=== PATIENT | female | born 1955 | race Hispanic/Latino ===

== ENCOUNTER 2017-03-05 09:35 | Day surgery (SDC) | payer BC ==
[2016-07-16 12:47] VITALS: BMI 30.2
[2017-03-05 10:15] VITALS: TEMP 98.7
[2017-03-05] MEDS ORDERED: cefTRIAXone (Rocephin) 1 gm Inj ONE (10:50)
[2017-03-05] MEDS ORDERED: Propofol 10 mg/ml Inj (20 ML) ONE ×2 (10:52→11:10)
[2017-03-05] MEDS ORDERED: cefTRIAXone 1 GM in NS 100 ML BAG IVPB ONE (10:55)
[2017-03-05] MEDS ORDERED: Sodium Chloride 0.9% 1,000 ML IV SCH (11:30)
[2017-03-05 13:56] VITALS: BP 143/79; PULSE 63; RESP 16; O2SAT 98
== END 2017-03-05 13:04 | disposition home or self-care (01) ==
LOC: ENDO 09:35
PROVIDERS: ATTEND Internal Medicine Gastroenterology
DX: K25.9 Gastric ulcer, unspecified as acute or chronic, without hemorrhage or perforation (principal); K29.50 Unspecified chronic gastritis without bleeding; K74.60 Unspecified cirrhosis of liver; I85.10 Secondary esophageal varices without bleeding; Z85.51 Personal history of malignant neoplasm of bladder
CPT/HCPCS: 43239; 88305; 88342; J0696; J2405; J2704; J2765; J7040 ×2

== ENCOUNTER 2018-10-12 12:49 | Inpatient (IN) | payer BC ==
[2018-10-12] MEDS ORDERED: Iohexol 240 (50 ml) ONE (13:42)
[2018-10-12 14:28] LABS: VENOUS BLOOD GAS BASE EXCESS 2.7 mmol/L (0.0-2.0); VENOUS BLOOD GAS PO2 57 mm/Hg (30-55); VENOUS BLOOD PH 7.59 (7.32-7.43)
[2018-10-12 14:33] LABS: HEMOGLOBIN 10.2 g/dL (12.0-16.0); LYMPH # 0.5 (1.2-3.4); LYMPH % 5.9 % (22.0-35.0); MEAN CELL VOLUME 79.2 fl (80.0-105.0); MEAN CORPUSCULAR HEMOGLOBIN 26.2 pg (25.0-35.0); MEAN CORPUSCULAR HGB CONC 33.1 g/dl (31.0-37.0); MONO # 0.6 (0.1-0.6); MONO % 6.7 % (1.0-6.0); PLATELET COUNT 144 10^3/uL (120.0-450.0); RBC 3.89 10^6/uL (3.5-6.1); RED CELL DISTRIBUTION WIDTH 15.7 % (11.5-14.5); WHITE BLOOD COUNT 8.9 10^3/uL (4.5-11.0)
[2018-10-12 14:39] LABS: INR 1.77; PARTIAL THROMBOPLASTIN TIME 32.4 Seconds (26.9-38.3); PROTHROMBIN TIME 19.7 SECONDS (9.4-12.5)
[2018-10-12 14:43] LABS: ALB/GLOB RATIO 0.8 (1.1-1.8); ALBUMIN 3.3 g/dL (3.0-4.8); ALT/SGPT 66 U/L (7-56); AMYLASE 77 U/L (35-125); AST/SGOT 61 U/L (14-36); BLOOD UREA NITROGEN 15 mg/dL (7-21); CALCIUM 8.5 mg/dL (8.4-10.5); GFR NON-AFRICAN AMERICAN 50; LIPASE 106 U/L (23-300)
[2018-10-12 14:54] LABS: TROPONIN I < 0.01 ng/mL
[2018-10-12] MEDS ORDERED: Iohexol 350 MG/100 ML VIAL ONE (15:12)
--- NOTE | 2018-10-12 15:46 | US ---
Date of service: 10/12/2018 HISTORY: abdominal pain COMPARISON: None. TECHNIQUE: Sonographic evaluation of the abdomen. FINDINGS: LIVER: Measures 12.6 cm. Heterogeneous with diffusely increased echogenicity of the liver parenchyma. Normal directional blood flow seen in the main portal vein. No mass. No intrahepatic bile duct dilatation. GALLBLADDER: Sludge is identified within a distended gallbladder limited cholelithiasis however there is no sonographic Lofton sign present. Normal mural thickness is evident. There is no pericholecystic fluid collection identified. COMMON BILE DUCT: Measures 6.7 mm. No stones. No dilatation. PANCREAS: Unremarkable as visualized. No mass. No ductal dilatation. RIGHT KIDNEY: Measures 11.9cm. Normal echogenicity. Mild hydronephrosis identified. No definitive mass or urolithiasis associated No perinephric fluid collection appreciated. LEFT KIDNEY: Measures 11.8cm. Mild hydronephrosis appreciated. No definite mass or urolithiasis. No perinephric fluid collection. SPLEEN: The spleen is enlarged to 15.6 cm without focal mass appreciable. AORTA: No aneurysmal dilatation. IVC: Unremarkable. OTHER FINDINGS: None. IMPRESSION: 1. Hepatic steatosis or other infiltrative liver process evident. No intrahepatic biliary dilatation or discrete hepatic mass evident. 2. Sludge and cholelithiasis identified in the gallbladder lumen without definite acute findings appreciable. Clinically correlate nevertheless. 3. Splenomegaly to 15.6 cm without focal mass. 4. Bilateral mild hydronephrosis with bilateral kidneys otherwise unremarkable.
--- NOTE | 2018-10-12 16:13 | CT ---
Date of service: 10/12/2018 PROCEDURE: CT Abdomen and Pelvis with contrast HISTORY: abdominal pain. History of ileal conduit, cystectomy and appendectomy COMPARISON: None. TECHNIQUE: Contrast dose: 100 cc of Omni 350 Radiation dose: Total exam DLP = 552.38 mGy-cm. This CT exam was performed using one or more of the following dose reduction techniques: Automated exposure control, adjustment of the mA and/or kV according to patient size, and/or use of iterative reconstruction technique. FINDINGS: LOWER THORAX: Minimal linear scarring or atelectasis at both lung bases LIVER: The liver has an irregular contour. The right lobe is small relative to the left. Findings may represent cirrhosis. Clinical correlation is suggested. There is also splenomegaly GALLBLADDER AND BILE DUCTS: Unremarkable. PANCREAS: Unremarkable. No gross lesion or ductal dilatation. SPLEEN: There is splenomegaly. The spleen measures 15 cm in length by 16 cm AP and 4.8 cm wide ADRENALS: Unremarkable. No mass. KIDNEYS AND URETERS: 6 mm nonobstructing stone in the lower pole of the left kidney. Both renal collecting systems are moderately dilated. The ureters are moderately dilated leading to the ileostomy in the right lower quadrant. VASCULATURE: Unremarkable. No aortic aneurysm. No aortic atherosclerotic calcification or mural plaque present. BOWEL: Unremarkable. No obstruction. No gross mural thickening. APPENDIX: Normal appendix. PERITONEUM: Unremarkable. No free fluid. No free air. LYMPH NODES: Unremarkable. No enlarged lymph nodes. BLADDER: Unremarkable. REPRODUCTIVE: Unremarkable. BONES: No acute fracture. OTHER FINDINGS: None. IMPRESSION: The liver has an irregular contour. The right lobe is small relative to the left. Findings may represent cirrhosis. Clinical correlation is suggested. There is also splenomegaly 6 mm nonobstructing stone in the lower pole of the left kidney. Both renal collecting systems are moderately dilated. The ureters are moderately dilated leading to the ileostomy in the right lower quadrant.
[2018-10-12] MEDS ORDERED: Cefepime IV 2 gm in NS 2 GM/100 ML BAG IVPB STA (16:23)
[2018-10-12] MEDS ORDERED: Sodium Chloride 0.9% 1,000 ML IV STA (16:27)
--- NOTE | 2018-10-12 16:35 | ED PDOC ---
Arrival/HPI - General Chief Complaint: Abdominal Pain Historian: Patient - History of Present Illness Narrative History of Present Illness (Text): 10/12/18 16:32 63yo female with pmhx of bladder CA, 2 hernia repair who present with complaint of constant sharp epigastric pain x 3days with associated nausea. Notes that pain became worse the past two days. Saw her Oncologist today and was referred to ED. Denies vomiting, diarrhea, constipation, chest pain, ripping/tearing upper back pain, melena, hematemesis, sick contact, travel, any other complaint. 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) - Hematological/Oncological Hx Blood Disorders: Yes (autoimmune Hepatitis) Hx Blood Transfusions: No Hx Blood Transfusion Reaction: No - Musculoskeletal/Rheumatological Hx Musculoskeletal Disorders: Yes - Gastrointestinal Hx Gastrointestinal Disorders: Yes (LOAP INCISIONAL HERNIA WITH BX OF OVER 03-11-15,LIVER CIRHOSIS) - Genitourinary/Gynecological Hx Genitourinary Disorders: Yes (ILEAL CONDUIT,HYSTERECTOMY 1998) Hx Bladder Cancer: Yes - Psychiatric Hx Substance Use: No - Surgical History Other/Comment: ILEAL CONDUIT 2013 - Anesthesia Hx Anesthesia Reactions: No Hx Malignant Hyperthermia: No - Suicidal Assessment Feels Threatened In Home Enviroment: No Family/Social History - Physician Review Nursing Documentation Reviewed: Yes Family/Social History: Unknown Family HX Smoking Status: Never Smoked Hx Alcohol Use: No Hx Substance Use: No Allergies/Home Meds Allergies/Adverse Reactions: Allergies levofloxacin [From Levaquin] Allergy (Severe, Verified 03/01/17 10:59) LOW WBC COUNT morphine Allergy (Severe, Verified 03/01/17 10:59) RESTLESSNESS,PALPITATIONS Sulfa (Sulfonamide Antibiotics) Allergy (Severe, Verified 03/01/17 10:59) RASH Home Medications: Home Meds Medication Instructions Recorded Confirmed Cholecalciferol (Vitamin D3) 1,000 iu PO DAILY 02/28/15 10/12/18 [Vitamin D] Cyanocobalamin [Vitamin B12 100 100 mcg PO DAILY 07/16/16 10/12/18 mcg Tab] Review of Systems - Physician Review All systems were reviewed & negative as marked: Yes - Review of Systems Constitutional: Normal Eyes: Normal ENT: Normal Respiratory: Normal Cardiovascular: Normal Gastrointestinal: Abdominal Pain, Nausea. absent: Constipation, Diarrhea, Vomiting, Hematochezia, Hematemesis Genitourinary Female: Normal Musculoskeletal: Normal Skin: Normal Neurological: Normal Endocrine: Normal Hemo/Lymphatic: Normal Psychiatric: Normal Physical Exam Vital Signs Reviewed: Yes Vital Signs Temp Pulse Resp BP Pulse Ox 10/12/18 16:15 98.1 F 87 18 123/76 97 10/12/18 13:04 101.0 F H 101 H 18 130/84 94 L Temperature: Febrile Blood Pressure: Normal Pulse: Tachycardic Respiratory Rate: Normal Appearance: Positive for: Well-Appearing, Non-Toxic, Comfortable Pain Distress: None Mental Status: Positive for: Alert and Oriented X 3 - Systems Exam Head: Present: Atraumatic, Normocephalic Pupils: Present: PERRL Extroacular Muscles: Present: EOMI Conjunctiva: Present: Normal Mouth: Present: Moist Mucous Membranes Neck: Present: Normal Range of Motion Respiratory/Chest: Present: Clear to Auscultation, Good Air Exchange. No: Respiratory Distress, Accessory Muscle Use Cardiovascular: Present: Regular Rate and Rhythm, Normal S1, S2. No: Murmurs Abdomen: Present: Tenderness (Epigastric ), Normal Bowel Sounds, Guarding (Voluntary), Other (Soft). No: Distention, Peritoneal Signs, Rebound, McBurney's Point Tender, Rovsing's Sign Present Back: Present: Normal Inspection Upper Extremity: Present: Normal Inspection. No: Cyanosis, Edema Lower Extremity: Present: Normal Inspection. No: Edema Neurological: Present: GCS=15, CN II-XII Intact, Speech Normal Skin: Present: Warm, Dry, Normal Color. No: Rashes Psychiatric: Present: Alert, Oriented x 3, Normal Insight, Normal Concentration Medical Decision Making ED Course and Treatment: 10/12/18 19:03 63yo female who was referred to ED by Dr. De La Cruz for epigastric pain x 3weeks. Labs EKG Abdominal US Abdominal/Pelvic CT Labs was reviewed with no leukocytosis and non specific findings EKG Sinus tachy @ 105 N-stemi Chest xray NAD Case was CHAPARRITA Johnson, who also saw pt in ED by the bedside. Abdominal/Pelvic CT Abdominal US CAse and resutl was CHAPARRITA Randolph. PT was admitted to they service. He requested Sugery consult and residential living assistant was paged twice wihout response. Imaging result was also result was Elizabeth and he was aware. Pt was started on Cefepime empirically secondary to the fever, abdominal pain and tachycardia. Lactate was wnl. - Lab Interpretations Lab Results: pO2 57 mm/Hg (30-55) H 10/12/18 14:15 VBG pH 7.59 (7.32-7.43) H 10/12/18 14:15 VBG pCO2 24.0 (40-60) L 10/12/18 14:15 VBG HCO3 23.0 mmol/l (21-28) 10/12/18 14:15 VBG Total CO2 23.7 mmol.L (22-28) 10/12/18 14:15 VBG O2 Sat (Calc) 95.7 % (40-65) H 10/12/18 14:15 VBG Base Excess 2.7 mmol/L (0.0-2.0) H 10/12/18 14:15 VBG Potassium 3.5 mmol/L (3.6-5.2) L 10/12/18 14:15 Sodium 131.0 mmol/L (132-148) L 10/12/18 14:15 Chloride 101.0 mmol/L (98-107) 10/12/18 14:15 Glucose 115 mg/dl (65-105) H 10/12/18 14:15 Lactate 1.0 mmol/L (0.7-2.1) 10/12/18 14:15 FiO2 21.0 % 10/12/18 14:15 Crit Value Called To Addis capellan 10/12/18 14:15 Crit Value Called By Ursula goodwin 10/12/18 14:15 Blood Gas Notified Time 1428 10/12/18 14:15 PT 19.7 SECONDS (9.4-12.5) H 10/12/18 14:15 INR 1.77 10/12/18 14:15 APTT 32.4 Seconds (26.9-38.3) 10/12/18 14:15 Troponin I < 0.01 ng/mL 10/12/18 14:15 Total Bilirubin 1.6 mg/dL (0.2-1.3) H 10/12/18 14:15 AST 61 U/L (14-36) H 10/12/18 14:15 ALT 66 U/L (7-56) H 10/12/18 14:15 Alkaline Phosphatase 180 U/L (38-126) H 10/12/18 14:15 Total Protein 7.3 g/dL (5.8-8.3) 10/12/18 14:15 Albumin 3.3 g/dL (3.0-4.8) 10/12/18 14:15 Globulin 4.0 gm/dL 10/12/18 14:15 Albumin/Globulin Ratio 0.8 (1.1-1.8) L 10/12/18 14:15 Amylase 77 U/L (35-125) 10/12/18 14:15 Lipase 106 U/L (23-300) 10/12/18 14:15 - RAD Interpretation Radiology Orders: 10/12/18 13:36 ABD PELVIS PO & IV CONTRAST [CT] Stat ABDOMEN COMPLETE [US] Stat 10/12/18 16:28 CHEST PORTABLE [RAD] Stat - Medication Orders Current Medication Orders: Cefepime HCl (Maxipime 2gm) 2 gm in 100 mls @ 100 mls/hr IVPB STAT STA; Protocol Stop: 10/12/18 17:22 Sodium Chloride (Sodium Chloride 0.9%) 1,000 mls @ 999 mls/hr IV .Q1H1M STA Stop: 10/12/18 17:27 Discontinued Medications Ketorolac Tromethamine (Toradol) 30 mg IVP STAT STA Stop: 10/12/18 15:00 Last Admin: 10/12/18 15:11 Dose: 30 mg MAR Pain Assessment Document 10/12/18 15:11 [facility] (Rec: 10/12/18 15:11 [id number] Pain Reassessment Is this a pain reassessment? Yes IVP Administration Document 10/12/18 15:11 [facility] (Rec: 10/12/18 15:11 [id number] Charges for Administration # of IVP Administrations 1 Disposition/Present on Arrival - Present on Arrival Any Indicators Present on Arrival: No History of DVT/PE: No History of Uncontrolled Diabetes: No Urinary Catheter: Yes (ILEAL CONDUIT) History of Decub. Ulcer: No History Surgical Site Infection Following: None - Disposition Have Diagnosis and Disposition been Completed?: Yes Diagnosis: Cholelithiasis, Intractable abdominal pain Disposition: HOSPITALIZED Disposition Time: 16:10 Patient Plan: Admission Patient Problems: Current Active Problems Problem Status Onset Cholelithiasis Acute Intractable abdominal pain Acute Condition: FAIR
--- NOTE | 2018-10-12 16:51 | RAD ---
Date of service: 10/12/2018 HISTORY: admission COMPARISON: 02/28/2015 FINDINGS: LUNGS: No active pulmonary disease. PLEURA: No significant pleural effusion identified, no pneumothorax apparent. CARDIOVASCULAR: No aortic atherosclerotic calcification present. Normal cardiac size. No pulmonary vascular congestion. OSSEOUS STRUCTURES: No significant abnormalities. VISUALIZED UPPER ABDOMEN: Normal. OTHER FINDINGS: None. IMPRESSION: No active disease.
[2018-10-12 19:33] VITALS: BMI 28.5
[2018-10-12] MEDS ORDERED: Pneumococcal 23-Valent Vaccine IM ONE (19:33)
[2018-10-12] MEDS ORDERED: Influenza Vaccine 60 mcg/0.5 mL SYR (4YR UP) IM ONE (19:33)
--- NOTE | 2018-10-12 19:43 | CP.PCM.CON ---
History of Present Illness - History of Present Illness History of Present Illness: Surgery: Dr. Cornelius CC: Abd pain HPI: 63F w. pmh of autoimmune hepatitis, bladder CA, and stomach ulcer presents to ED for evaluation of abdominal pain x 3 weeks. Pain is epigastric, non- radiating. Pain was initially intermittent but became constant over the past few days. There are no alleviating or aggravating symptoms. She reports decreased appetite and unintentional 15lb weight loss over this period. She denies N/V. She has normal BM. No Diarrhea. She did have fever of 101 today. Pt had U/S done in ED which showed sludge and +Lofton sign for which surgery was consulted. PMH: See above PSH: appendectomy, radical cystectomy w. ileal conduit, parastomal hernia repair, ventral hernia repair Meds: MAR reviewed ALL: levaquin, toradol, morphine, sulfa Social: No ETOH/tobacco/drugs Fhx: Non-contributory Review of Systems - Review of Systems All systems: reviewed and no additional remarkable complaints except (HPI) Past Patient History - Past Social History Smoking Status: Never Smoked - CARDIAC Hx Pacemaker: No - PULMONARY Hx Respiratory Disorders: No - NEUROLOGICAL Hx Paralysis: No - HEENT Hx HEENT Problems: No - RENAL Hx Chronic Kidney Disease: Yes (ADENOCARCINOMA OF THE BLADDER) - ENDOCRINE/METABOLIC Hx Endocrine Disorders: No - HEMATOLOGICAL/ONCOLOGICAL Hx Blood Disorders: Yes (autoimmune Hepatitis) Hx Blood Transfusions: No Hx Blood Transfusion Reaction: No - INTEGUMENTARY Hx Dermatological Problems: No - MUSCULOSKELETAL/RHEUMATOLOGICAL Hx Falls: No - GASTROINTESTINAL Hx Gastrointestinal Disorders: Yes (LOAP INCISIONAL HERNIA WITH BX OF OVER 7-27-15,LIVER CIRHOSIS) - GENITOURINARY/GYNECOLOGICAL Hx Genitourinary Disorders: Yes (ILEAL CONDUIT,HYSTERECTOMY 1998) Hx Bladder Cancer: Yes - PSYCHIATRIC Hx Substance Use: No - SURGICAL HISTORY Other/Comment: ILEAL CONDUIT 2013 - ANESTHESIA Hx Anesthesia Reactions: No Hx Malignant Hyperthermia: No Meds Allergies/Adverse Reactions: Allergies Allergy/AdvReac Type Severity Reaction Status Date / Time levofloxacin [From Levaquin] Allergy Severe LOW WBC Verified 03/01/17 10:59 COUNT morphine Allergy Severe RESTLESSNES Verified 03/01/17 10:59 S,PALPITATI ONS Sulfa (Sulfonamide Allergy Severe RASH Verified 07/17/17 10:59 Antibiotics) ketorolac [From Toradol] AdvReac Intermediate feels Verified 10/12/18 19:21 jittery - Medications Medications: Current Medications Hydromorphone HCl (Dilaudid) 1 mg IVP Q4H PRN PRN Reason: Pain, severe (8-10) Sodium Chloride (Sodium Chloride 0.9%) 1,000 mls @ 100 mls/hr IV .Q10H AKSHAT Cefepime HCl (Maxipime 1gm) 1 gm in 100 mls @ 100 mls/hr IVPB Q8 AKSHAT; Protocol Influenza Virus Vaccine (Flucelvax Quad 5535-6412 Syr) 60 mcg IM .ONCE ONE Stop: 10/12/18 19:34 Ondansetron HCl (Zofran Inj) 4 mg IVP Q4H PRN PRN Reason: Nausea/Vomiting Pantoprazole Sodium (Protonix Inj) 40 mg IVP DAILY AKSHAT Pneumococcal Polyvalent Vaccine (Pneumovax 23 Vaccine) 0.5 ml IM .ONCE ONE Stop: 10/12/18 19:34 Physical Exam - Constitutional Appears: Non-toxic, No Acute Distress - Head Exam Head Exam: ATRAUMATIC, NORMOCEPHALIC - Eye Exam Eye Exam: EOMI - ENT Exam ENT Exam: Mucous Membranes Moist - Respiratory Exam Respiratory Exam: NORMAL BREATHING PATTERN. absent: Accessory Muscle Use, Respiratory Distress - GI/Abdominal Exam GI & Abdominal Exam: Soft, Tenderness (epigastric). absent: Distended, Firm, Guarding, Rebound, Rigid Additional comments: ileal conduit, pink and patent - Extremities Exam Extremities exam: Negative for: calf tenderness, pedal edema - Neurological Exam Neurological exam: Alert, Oriented x3 - Psychiatric Exam Psychiatric exam: Normal Affect, Normal Mood - Skin Skin Exam: Dry, Normal Color, Warm Results - Vital Signs Recent Vital Signs: Last Vital Signs Temp 97.9 F 10/12/18 17:56 Pulse 87 10/12/18 19:13 Resp 18 10/12/18 19:13 BP 133/81 10/12/18 17:56 Pulse Ox 97 10/12/18 17:56 - Labs Result Diagrams: 10/12/18 14:15 10/12/18 14:15 Labs: Laboratory Results - last 24 hr 10/12/18 10/12/18 10/12/18 14:15 14:15 14:15 WBC 8.9 RBC 3.89 Hgb 10.2 L Hct 30.8 L MCV 79.2 L MCH 26.2 MCHC 33.1 RDW 15.7 H Plt Count 144 Neut % (Auto) 87.4 H Lymph % (Auto) 5.9 L Ralls % (Auto) 6.7 H Eos % (Auto) 0.0 L Baso % (Auto) 0.0 Lymph # (Auto) 0.5 L Ralls # (Auto) 0.6 Eos # (Auto) 0.0 Baso # (Auto) 0.00 Absolute Neuts (auto) 7.80 H PT 19.7 H INR 1.77 APTT 32.4 pO2 VBG pH VBG pCO2 VBG HCO3 VBG Total CO2 VBG O2 Sat (Calc) VBG Base Excess VBG Potassium Sodium 131 L Chloride 100 Glucose Lactate FiO2 Crit Value Called To Crit Value Called By Blood Gas Notified Time Potassium 3.7 Carbon Dioxide 23 Anion Gap 12 BUN 15 Creatinine 1.1 Est GFR ( Amer) > 60 Est GFR (Non-Af Amer) 50 Random Glucose 114 H Calcium 8.5 Total Bilirubin 1.6 H AST 61 H ALT 66 H Alkaline Phosphatase 180 H Lactate Dehydrogenase 451 Total Creatine Kinase 38 Troponin I < 0.01 Total Protein 7.3 Albumin 3.3 Globulin 4.0 Albumin/Globulin Ratio 0.8 L Amylase 77 Lipase 106 Venous Blood Potassium Urine Color Urine Appearance Urine pH Ur Specific [place] Urine Protein Urine Glucose (UA) Urine Ketones Urine Blood Urine Nitrate Urine Bilirubin Urine Urobilinogen Ur Leukocyte Esterase 10/12/18 10/12/18 14:15 17:10 WBC RBC Hgb Hct MCV MCH MCHC RDW Plt Count Neut % (Auto) Lymph % (Auto) Ralls % (Auto) Eos % (Auto) Baso % (Auto) Lymph # (Auto) Ralls # (Auto) Eos # (Auto) Baso # (Auto) Absolute Neuts (auto) PT INR APTT pO2 57 H VBG pH 7.59 H VBG pCO2 24.0 L VBG HCO3 23.0 VBG Total CO2 23.7 VBG O2 Sat (Calc) 95.7 H VBG Base Excess 2.7 H VBG Potassium 3.5 L Sodium 131.0 L Chloride 101.0 Glucose 115 H Lactate 1.0 FiO2 21.0 Crit Value Called To Diru happiness Crit Value Called By Ursula goodwin Blood Gas Notified Time 1428 Potassium Carbon Dioxide Anion Gap BUN Creatinine Est GFR ( Amer) Est GFR (Non-Af Amer) Random Glucose Calcium Total Bilirubin AST ALT Alkaline Phosphatase Lactate Dehydrogenase Total Creatine Kinase Troponin I Total Protein Albumin Globulin Albumin/Globulin Ratio Amylase Lipase Venous Blood Potassium 3.5 L Urine Color Cancelled Urine Appearance Cancelled Urine pH Cancelled Ur Specific [place] Cancelled Urine Protein Cancelled Urine Glucose (UA) Cancelled Urine Ketones Cancelled Urine Blood Cancelled Urine Nitrate Cancelled Urine Bilirubin Cancelled Urine Urobilinogen Cancelled Ur Leukocyte Esterase Cancelled - Imaging and Cardiology CT scan - abdomen Status: Image reviewed by me, Report reviewed by me US - abdomen Status: Image reviewed by me, Report reviewed by me Assessment & Plan - Assessment and Plan (Free Text) Assessment: 63F w. abdominal pain, likely gastritis, r/o cholecystitis -pt states that she is scheduled for EGD this Wednesday with Dr. Mancini -will f/u w. GI -c/w protonix, IVF -diet as tolerated -serial abdominal exams -d/w attending [facility] PGY4
[2018-10-12] MEDS: HYDROmorphone 1 mg/ml ISec IVP PRN (20:21)
[2018-10-12] MEDS: Cefepime 1gm in NS 100ml 1 GM/100 ML BAG IVPB SCH (21:41)
--- NOTE | 2018-10-13 04:37 | HP ---
DATE: LOCATION: The patient is in room 373, bed 3. The patient was admitted to the emergency room today. 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 The patient notes the pain became worse in the past three days or so and she has been unable to be productive, despite her working. She just comes home and lies down because of this constant pain. The patient was seen in our office today as she called me last night. The patient had been to the emergency room x3 locally where she lives at [facility] and she has an outpatient CAT scan of the abdomen and pelvis done with oral and IV contrast on 09/16/2018, which showed some cholelithiasis, ureteral stone, stone in the lower pole of the left kidney, but no other major stigmata were seen on the CAT scan. Her chemistries also from two weeks ago were relatively unrevealing. The patient denies any vomiting, diarrhea, constipation, chest pain, upper back pain, melena, hematemesis, sick contact, travel, or any other complaints. 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 PAST MEDICAL HISTORY: Significant for the fact that the patient has history of autoimmune hepatitis, about 17 to 18 years ago, treated with immunosuppressive therapy, had been on CellCept for many years, which was tapered and just stopped about a year and a half ago. The patient has evidence of cryptogenic cirrhosis and splenomegaly along with borderline thrombocytopenia, which has gradually improved. The patient also had grade I esophageal varices, which have also improved over the past several years. She no longer on any treatment for her autoimmune hepatitis. The patient also has a diagnosis of questionable urinary bladder that was picked up on routine examination and the patient was having symptoms of abdominal complaint. The patient underwent surgery for carcinoma of the urinary bladder, which was on pathology determined to be adenocarcinoma, probably arising from the urachus rather than a papillary carcinoma of the bladder. Based on the findings, the patient was recommended radical surgery, which she had done at the [facility] more than four and a half years ago. The patient has been doing well since that time and she has an ileal conduit. Since the surgery, the patient has had two hernia repairs related to ventral hernias, one was low in the abdomen around the periumbilical area and the other one was higher up, more close towards the epigastrium and both those hernias have been repaired. The patient did have a followup endoscopy about a year ago, which did not reveal anything of significance. There was evidence of grade I esophageal varices. The patient has otherwise been doing well until the recent complaint that the patient has had over the last several weeks. She has a sick at home who is on dialysis and she thought initially the pressure of taking care of a sick person was the cause of all the problems. The patient decided to come over to see us, as she was not getting better over the last several weeks. The patient has never had blood transfusion. REVIEW OF SYSTEMS: Twelve-system review of systems was done, all of which were negative except what is mentioned in the HPI. FAMILY HISTORY: Noncontributory, except for the fact that her mother and one of her brothers had significant rheumatoid arthritis. SOCIAL HISTORY: No history of alcohol use. No history of tobacco use. No history of any exposure to drugs. PHYSICAL EXAMINATION: VITAL SIGNS: Stable. T-max is 98.4, initially was 101, pulse 87, respirations 18, blood pressure 123/76, and pulse ox is 97%. The patient was febrile, temperature has come down. Blood pressure is normal. Respirations are normal. GENERAL: The patient is awake, alert, and oriented. Feels jittery after she received Toradol in the emergency room. There has been no significant pain, but feels restless. HEENT: Head is normocephalic and atraumatic. Conjunctivae pale. Sclerae anicteric. Pupils are equally reactive to light and accommodation. Examination of the oropharynx reveals no oropharyngeal lesions. Tongue is coated and dry. NECK: Supple. There is no adenopathy. No jugular venous distention noted. LUNGS: Clear to percussion and auscultation. CARDIOVASCULAR SYSTEM: Reveals PMI at the fifth intercostal space inside the midclavicular line. S1 and S2 are normal. No gallop or murmur is heard. ABDOMEN: Reveals exquisite tenderness in the epigastrium. No rebound, rigidity, or guarding is noted. Normal bowel sounds are heard. There is no evidence of distention or any peritoneal signs. No evidence of rebound. McBurney's point is negative. Rovsing sign is present. BACK: Reveals it to be normal. There is no evidence of any issues with back pain at this time. No issues with pain in the kidney region. EXTREMITIES: Upper and lower extremities are unremarkable without any cyanosis, clubbing or edema. NEUROLOGIC: Reveals higher functions to be normal. No focal deficits are noted. GENITOURINARY AND RECTAL: Deferred. PSYCHIATRIC: The patient's affect is normal. She is awake, alert, and oriented x3. ALLERGIES: THE PATIENT'S ALLERGIES WERE REVIEWED. SHE IS ALLERGIC TO LEVAQUIN, MORPHINE, PSEUDO ALLERGY AND SULFA. HOME MEDICATIONS: Include vitamin D3 and B12. LABORATORY DATA: EKG in the ER shows sinus tachycardia. Chest x-ray does not show any active disease. The patient had a CAT scan of the abdomen and pelvis with IV contrast, which shows cholelithiasis, but no cholecystitis. The patient has a parastomal ventral hernia, which may be the cause for traction on the mesentery and causing the pain in the epigastrium. No identifiable masses are seen in the abdominal cavity or in the pelvis. The patient has a calculus in the lower pole of the left kidney. No other significant findings are noted. The patient has mild bilateral hydronephrosis, etiology of which is unclear at this point in time raising the question whether the patient could be developing stricture where the ureter is anastomosed to the ileum, as the patient has an ileal conduit. This could be a source of considerable issues down the road in patients who have ileal conduit and one of the questions would be recurrent infections as well. The patient tells me her urine has been dark over the last several days. ASSESSMENT, NOTES, AND PLAN: The patient is febrile, etiology of which is unclear but urinary tract infections to be ruled out. Blood cultures postoperative have been drawn. The patient has been already started empirically on antibiotics. Urine culture and sensitivity and urinalysis have been requested. Consultations with Infectious Diseases have been obtained. Consultations with GI and Urology have also been obtained. The patient is going to be started on intravenous fluids. She has already got one dose of cefepime downstairs in the emergency room. We are going to continue the cefepime 1 g every 8 hours. She is going to be seen in consultation by Infectious Disease, Dr. Marroquin as soon as it is feasible. To continue with the intravenous fluids, she is going to be started to be intravenous fluids pantoprazole as well. I spoke to Dr. Johnson. The plan is to at least continue the antibiotics for now and to see how she feels. We will get surgical consultation as well to review the CAT scan and make sure there is nothing surgically involved, such as an incarcerated internal hernia that may be the cause of the pain, though my assumption is pain would be caused by the traction of the mesentery related to the parastomal hernia. The patient has been started on clear liquids and we will be monitoring the patient very carefully over the next 48 to 72 hours. There is no evidence at least overtly of any other recurrent cancer or new pathology on the CAT scan of the abdomen and pelvis. Routine post-exam instructions have been given to the patient. We will make further decisions based on further testing. Additional lab work for the morning has been requested. Please make a note, this is a complex patient with multiple comorbid medical issues. Time spent with the patient is greater than 80 minutes correlating all the facts, talking to the various consultants, and writing all the orders, including talking to the nurses at length. Matthew De La Cruz MD
[2018-10-13] MEDS: Cefepime 1gm in NS 100ml 1 GM/100 ML BAG IVPB SCH ×2 (05:57→21:15)
[2018-10-13] MEDS: metroNIDAZOLE IV 500 mg/100 ml 500 MG/100 ML BAG IVPB SCH ×3 (06:40→21:14)
[2018-10-13 07:55] LABS: PH,URINE 6.5 (4.7-8.0); URINE BILIRUBIN NEGATIVE (NEGATIVE); URINE BLOOD SMALL (NEGATIVE); URINE GLUCOSE (UA) NEGATIVE (NEGATIVE); URINE LEUKOCYTE ESTERASE MODERATE Leu/uL (NEGATIVE); URINE PROTEIN 30 mg/dL (<30 mg/dL)
[2018-10-13 08:03] LABS: URINE APPEARANCE SL CLOUDY (CLEAR); URINE COLOR YELLOW (YELLOW)
[2018-10-13 08:22] LABS: URINE WBC TNTC /hpf (0-6)
[2018-10-13 08:23] LABS: URINE AMORPHOUS SEDIMENT FEW /hpf; URINE BACTERIA LARGE /hpf; URINE RBC TNTC /hpf (0-2)
[2018-10-13] MEDS: Sodium Chloride 0.9% 1,000 ML IV SCH ×2 (08:24→19:38)
--- NOTE | 2018-10-13 08:27 | CP.PCM.PN ---
Subjective - Date & Time of Evaluation Date of Evaluation: 10/13/18 Time of Evaluation: 07:15 - Subjective Subjective: Howard López, PGY-[address] Cornelius Patient seen and evaluated at bedside. Febrile overnight. Objective - Vital Signs/Intake and Output Vital Signs (last 24 hours): Temp Pulse Resp BP Pulse Ox 97.9 F 87 18 133/81 97 10/12/18 17:56 10/12/18 19:13 10/12/18 19:13 10/12/18 17:56 10/12/18 17:56 Intake and Output: 10/13/18 10/13/18 06:59 18:59 Intake Total 240 Output Total 800 Balance -560 - Medications Medications: Current Medications Hydromorphone HCl (Dilaudid) 1 mg IVP Q4H PRN PRN Reason: Pain, severe (8-10) Last Admin: 10/12/18 20:21 Dose: 1 mg Sodium Chloride (Sodium Chloride 0.9%) 1,000 mls @ 100 mls/hr IV .Q10H AKSHAT Cefepime HCl (Maxipime 1gm) 1 gm in 100 mls @ 100 mls/hr IVPB Q8 AKSHAT; Protocol Last Admin: 10/13/18 05:57 Dose: 100 mls/hr Metronidazole (Flagyl) 500 mg in 100 mls @ 100 mls/hr IVPB Q8 AKSHAT; Protocol Last Admin: 10/13/18 06:40 Dose: 100 mls/hr Ondansetron HCl (Zofran Inj) 4 mg IVP Q4H PRN PRN Reason: Nausea/Vomiting Last Admin: 10/12/18 20:20 Dose: 4 mg Pantoprazole Sodium (Protonix Inj) 40 mg IVP DAILY AKSHAT - Labs Labs: 10/12/18 14:15 10/12/18 14:15 PT 19.7 SECONDS (9.4-12.5) H 10/12/18 14:15 INR 1.77 10/12/18 14:15 APTT 32.4 Seconds (26.9-38.3) 10/12/18 14:15 - Additional Findings Additional findings: - Constitutional Appears: Non-toxic, No Acute Distress - Head Exam Head Exam: ATRAUMATIC, NORMOCEPHALIC - Eye Exam Eye Exam: EOMI - ENT Exam ENT Exam: Mucous Membranes Moist - Respiratory Exam Respiratory Exam: NORMAL BREATHING PATTERN. absent: Accessory Muscle Use, Respiratory Distress - GI/Abdominal Exam GI & Abdominal Exam: Soft, Tenderness (epigastric). absent: Distended, Firm, Guarding, Rebound, Rigid Additional comments: ileal conduit, pink and patent - Extremities Exam Extremities exam: Negative for: calf tenderness, pedal edema - Neurological Exam Neurological exam: Alert, Oriented x3 - Psychiatric Exam Psychiatric exam: Normal Affect, Normal Mood - Skin Skin Exam: Dry, Normal Color, Warm Assessment and Plan - Assessment and Plan (Free Text) Assessment: 63 year old F w/ abdominal pain, likely gastritis, r/o cholecystitis Plan: - EGD planned this week with Dr. Johnson, will F/u with GI team for more details - c/w protonix, IVF - CLD currently, advance diet as tolerated - serial abdominal exams Further recs per Dr. Eliezer López, PGY-1
--- NOTE | 2018-10-13 09:22 | CARD ---
APPROVED REPORT Date of service: 10/12/2018 EKG Measurement Heart [id number] <Conclusion> Sinus tachycardia Possible Left atrial enlargement Borderline ECG
[2018-10-13 11:51] LABS: HEMOGLOBIN 8.8 g/dL (12.0-16.0); LYMPH # 0.6 (1.2-3.4); LYMPH % 11.3 % (22.0-35.0); MEAN CELL VOLUME 80.6 fl (80.0-105.0); MEAN CORPUSCULAR HEMOGLOBIN 25.9 pg (25.0-35.0); MEAN CORPUSCULAR HGB CONC 32.1 g/dl (31.0-37.0); MONO # 0.2 (0.1-0.6); MONO % 4.3 % (1.0-6.0); PLATELET COUNT 85 10^3/uL (120.0-450.0)
--- NOTE | 2018-10-13 11:56 | CP.PCM.CON ---
<Anant Meyer - Last Filed: 10/13/18 12:14> History of Present Illness - History of Present Illness History of Present Illness: PGY5 GI Consult Note Qing Reyes is a 63F w/ hx of autoimmune hepatitis, bladder CA s/p total cystectomy, and stomach ulcer presents to ED for evaluation of abdominal pain x 3 weeks and fever. She notes having pain is epigastric area, non-radiating. Pain was initially intermittent but became constant over the past few days, she graded its 10 out of 10. She denies any alleviating or aggravating symptoms. She reports decreased appetite and unintentional 15lb weight loss over this period. Denies any N/V/D. U/S revealed sludge and +Lofton sign. CT Abd revealed ileal conduit and moderate nephrohydrosis. PMH: See above PSH: appendectomy, radical cystectomy w. ileal conduit, parastomal hernia repair, ventral hernia repair Social: No ETOH/tobacco/drugs Fhx: Non-contributory Endo Hx ROS: 12point ROS conducted neg other than above Past Patient History - Past Social History Smoking Status: Never Smoked - CARDIAC Hx Pacemaker: No - PULMONARY Hx Respiratory Disorders: No - NEUROLOGICAL Hx Paralysis: No - HEENT Hx HEENT Problems: No - RENAL Hx Chronic Kidney Disease: Yes (ADENOCARCINOMA OF THE BLADDER) - ENDOCRINE/METABOLIC Hx Endocrine Disorders: No - HEMATOLOGICAL/ONCOLOGICAL Hx Blood Disorders: Yes (autoimmune Hepatitis) Hx Blood Transfusions: No Hx Blood Transfusion Reaction: No - INTEGUMENTARY Hx Dermatological Problems: No - MUSCULOSKELETAL/RHEUMATOLOGICAL Hx Falls: No - GASTROINTESTINAL Hx Gastrointestinal Disorders: Yes (LOAP INCISIONAL HERNIA WITH BX OF OVER 7-27-15,LIVER CIRHOSIS) - GENITOURINARY/GYNECOLOGICAL Hx Genitourinary Disorders: Yes (ILEAL CONDUIT,HYSTERECTOMY 1998) Hx Bladder Cancer: Yes - PSYCHIATRIC Hx Substance Use: No - SURGICAL HISTORY Other/Comment: ILEAL CONDUIT 2013 - ANESTHESIA Hx Anesthesia Reactions: No Hx Malignant Hyperthermia: No Meds Allergies/Adverse Reactions: Allergies Allergy/AdvReac Type Severity Reaction Status Date / Time levofloxacin [From Levaquin] Allergy Severe LOW WBC Verified 03/01/17 10:59 COUNT morphine Allergy Severe RESTLESSNES Verified 03/01/17 10:59 S,PALPITATI ONS Sulfa (Sulfonamide Allergy Severe RASH Verified 07/17/17 10:59 Antibiotics) ketorolac [From Toradol] AdvReac Intermediate feels Verified 10/12/18 19:21 jittery - Medications Medications: Current Medications Hydromorphone HCl (Dilaudid) 1 mg IVP Q4H PRN PRN Reason: Pain, severe (8-10) Last Admin: 10/12/18 20:21 Dose: 1 mg Sodium Chloride (Sodium Chloride 0.9%) 1,000 mls @ 100 mls/hr IV .Q10H AKSHAT Last Admin: 10/13/18 08:24 Dose: 100 mls/hr Cefepime HCl (Maxipime 1gm) 1 gm in 100 mls @ 100 mls/hr IVPB Q8 AKSHAT; Protocol Last Admin: 10/13/18 05:57 Dose: 100 mls/hr Metronidazole (Flagyl) 500 mg in 100 mls @ 100 mls/hr IVPB Q8 AKSHAT; Protocol Last Admin: 10/13/18 06:40 Dose: 100 mls/hr Ondansetron HCl (Zofran Inj) 4 mg IVP Q4H PRN PRN Reason: Nausea/Vomiting Last Admin: 10/12/18 20:20 Dose: 4 mg Pantoprazole Sodium (Protonix Inj) 40 mg IVP DAILY AKSHAT Last Admin: 10/13/18 10:05 Dose: 40 mg Physical Exam - Constitutional Appears: Well, No Acute Distress - Head Exam Head Exam: ATRAUMATIC, NORMOCEPHALIC - Eye Exam Eye Exam: Normal appearance - ENT Exam ENT Exam: Mucous Membranes Moist, Normal Exam - Neck Exam Neck exam: Positive for: Normal Inspection - Respiratory Exam Respiratory Exam: Clear to Auscultation Bilateral, NORMAL BREATHING PATTERN. absent: Rales, Rhonchi, Wheezes, Respiratory Distress, Stridor - Cardiovascular Exam Cardiovascular Exam: REGULAR RHYTHM, +S1, +S2 - GI/Abdominal Exam GI & Abdominal Exam: Normal Bowel Sounds, Soft. absent: Diminished Bowel Sounds, Distended, Firm, Guarding, Hernia, Organomegaly, Pulsatile Mass, Rebound, Rigid - Extremities Exam Extremities exam: Negative for: joint swelling, pedal edema - Back Exam Back exam: NORMAL INSPECTION - Neurological Exam Neurological exam: Alert, Oriented x3 - Psychiatric Exam Psychiatric exam: Normal Affect, Normal Mood - Skin Skin Exam: Dry, Intact, Normal Color, Warm Results - Vital Signs Recent Vital Signs: Last Vital Signs Temp 99.4 F 10/13/18 08:41 Pulse 107 H 10/13/18 08:41 Resp 20 10/13/18 08:41 BP 116/74 10/13/18 08:41 Pulse Ox 94 L 10/13/18 08:41 - Labs Result Diagrams: 10/13/18 11:40 10/13/18 11:40 Labs: Laboratory Results - last 24 hr 10/12/18 10/12/18 10/12/18 14:15 14:15 14:15 WBC 8.9 RBC 3.89 Hgb 10.2 L Hct 30.8 L MCV 79.2 L MCH 26.2 MCHC 33.1 RDW 15.7 H Plt Count 144 Neut % (Auto) 87.4 H Lymph % (Auto) 5.9 L [place] % (Auto) 6.7 H Eos % (Auto) 0.0 L Baso % (Auto) 0.0 Lymph # (Auto) 0.5 L [place] # (Auto) 0.6 Eos # (Auto) 0.0 Baso # (Auto) 0.00 Absolute Neuts (auto) 7.80 H PT 19.7 H INR 1.77 APTT 32.4 pO2 VBG pH VBG pCO2 VBG HCO3 VBG Total CO2 VBG O2 Sat (Calc) VBG Base Excess VBG Potassium Sodium 131 L Chloride 100 Glucose Lactate FiO2 Crit Value Called To Crit Value Called By Blood Gas Notified Time Potassium 3.7 Carbon Dioxide 23 Anion Gap 12 BUN 15 Creatinine 1.1 Est GFR ( Amer) > 60 Est GFR (Non-Af Amer) 50 Random Glucose 114 H Calcium 8.5 Total Bilirubin 1.6 H AST 61 H ALT 66 H Alkaline Phosphatase 180 H Lactate Dehydrogenase 451 Total Creatine Kinase 38 Troponin I < 0.01 Total Protein 7.3 Albumin 3.3 Globulin 4.0 Albumin/Globulin Ratio 0.8 L Amylase 77 Lipase 106 Venous Blood Potassium Urine Color Urine Appearance Urine pH Ur Specific [place] Urine Protein Urine Glucose (UA) Urine Ketones Urine Blood Urine Nitrate Urine Bilirubin Urine Urobilinogen Ur Leukocyte Esterase Urine RBC Urine WBC Ur Epithelial Cells Amorphous Sediment Urine Bacteria 10/12/18 10/12/18 10/13/18 14:15 17:10 06:47 WBC RBC Hgb Hct MCV MCH MCHC RDW Plt Count Neut % (Auto) Lymph % (Auto) [place] % (Auto) Eos % (Auto) Baso % (Auto) Lymph # (Auto) [place] # (Auto) Eos # (Auto) Baso # (Auto) Absolute Neuts (auto) PT INR APTT pO2 57 H VBG pH 7.59 H VBG pCO2 24.0 L VBG HCO3 23.0 VBG Total CO2 23.7 VBG O2 Sat (Calc) 95.7 H VBG Base Excess 2.7 H VBG Potassium 3.5 L Sodium 131.0 L Chloride 101.0 Glucose 115 H Lactate 1.0 FiO2 21.0 Crit Value Called To Addis capellan Crit Value Called By Ursula goodwin Blood Gas Notified Time 1428 Potassium Carbon Dioxide Anion Gap BUN Creatinine Est GFR ( Amer) Est GFR (Non-Af Amer) Random Glucose Calcium Total Bilirubin AST ALT Alkaline Phosphatase Lactate Dehydrogenase Total Creatine Kinase Troponin I Total Protein Albumin Globulin Albumin/Globulin Ratio Amylase Lipase Venous Blood Potassium 3.5 L Urine Color Cancelled Yellow Urine Appearance Cancelled Sl cloudy Urine pH Cancelled 6.5 Ur Specific [place] Cancelled 1.015 Urine Protein Cancelled 30 H Urine Glucose (UA) Cancelled Negative Urine Ketones Cancelled Negative Urine Blood Cancelled Small H Urine Nitrate Cancelled Negative Urine Bilirubin Cancelled Negative Urine Urobilinogen Cancelled 1.0 H Ur Leukocyte Esterase Cancelled Moderate H Urine RBC Tntc H Urine WBC Tntc H Ur Epithelial Cells 3 - 4 Amorphous Sediment Few Urine Bacteria Large Assessment & Plan - Assessment and Plan (Free Text) Assessment: Qing Reyes is a 63F w/ hx of autoimmune hepatitis, bladder CA s/p total cystectomy, and stomach ulcer presents to ED for evaluation of abdominal pain x 3 weeks and fever Abd pain, etiology unknown; ddx: PUD, GERD, dyspepsia UTI? Fever 2/2 above hx of autoimmune hepatitis hx of bladder ca s/ cystectomy and ileal conduit Plan: -continue antibiotics -ID consulted, appreciate their input -Protonic 40mg IV Daily -Plan for EGD tomorrow -NPO after midnight -risk and benefits explained to the pt and verbalizes understanding D/W Dr. Johnson <Jose A Johnson V - Last Filed: 10/13/18 23:23> Meds - Medications Medications: Current Medications Hydromorphone HCl (Dilaudid) 1 mg IVP Q4H PRN PRN Reason: Pain, severe (8-10) Last Admin: 10/13/18 14:34 Dose: 1 mg Sodium Chloride (Sodium Chloride 0.9%) 1,000 mls @ 100 mls/hr IV .Q10H AKSHAT Last Admin: 10/13/18 19:38 Dose: 100 mls/hr Metronidazole (Flagyl) 500 mg in 100 mls @ 100 mls/hr IVPB Q8 AKSHAT; Protocol Last Admin: 10/13/18 21:14 Dose: 100 mls/hr Cefepime HCl (Maxipime 1gm) 1 gm in 100 mls @ 100 mls/hr IVPB Q12 AKSHAT; Protocol Last Admin: 10/13/18 21:15 Dose: 100 mls/hr Ondansetron HCl (Zofran Inj) 4 mg IVP Q4H PRN PRN Reason: Nausea/Vomiting Last Admin: 10/13/18 14:36 Dose: 4 mg Pantoprazole Sodium (Protonix Inj) [address] [facility] Last Admin: 10/13/18 10:05 Dose: 40 mg Results - Vital Signs Recent Vital Signs: Last Vital Signs Temp 99.5 F 10/13/18 19:51 Pulse 82 10/13/18 19:51 Resp 18 10/13/18 19:51 BP 113/67 10/13/18 19:51 Pulse Ox 98 10/13/18 19:51 - Labs Result Diagrams: 10/13/18 11:40 10/13/18 11:40 Labs: Laboratory Results - last 24 hr 10/12/18 10/13/18 10/13/18 19:00 06:47 11:40 WBC 4.9 D RBC 3.40 L Hgb 8.8 L Hct 27.4 L MCV 80.6 MCH 25.9 MCHC 32.1 RDW 16.0 H Plt Count 85 L Neut % (Auto) 84.4 H Lymph % (Auto) 11.3 L [place] % (Auto) 4.3 Eos % (Auto) 0.0 L Baso % (Auto) 0.0 Lymph # (Auto) 0.6 L [place] # (Auto) 0.2 Eos # (Auto) 0.0 Baso # (Auto) 0.00 Absolute Neuts (auto) 4.17 Sodium Potassium Chloride Carbon Dioxide Anion Gap BUN Creatinine Est GFR ( Amer) Est GFR (Non-Af Amer) Random Glucose Calcium Phosphorus Magnesium Total Bilirubin AST ALT Alkaline Phosphatase Total Protein Albumin Globulin Albumin/Globulin Ratio Procalcitonin 0.33 Urine Color Yellow Urine Appearance Sl cloudy Urine pH 6.5 Ur Specific [place] 1.015 Urine Protein 30 H Urine Glucose (UA) Negative Urine Ketones Negative Urine Blood Small H Urine Nitrate Negative Urine Bilirubin Negative Urine Urobilinogen 1.0 H Ur Leukocyte Esterase Moderate H Urine RBC Tntc H Urine WBC Tntc H Ur Epithelial Cells 3 - 4 Amorphous Sediment Few Urine Bacteria Large 10/13/18 11:40 WBC RBC Hgb Hct MCV MCH MCHC RDW Plt Count Neut % (Auto) Lymph % (Auto) [place] % (Auto) Eos % (Auto) Baso % (Auto) Lymph # (Auto) [place] # (Auto) Eos # (Auto) Baso # (Auto) Absolute Neuts (auto) Sodium 136 Potassium 3.9 Chloride 107 Carbon Dioxide 22 Anion Gap 11 BUN 14 Creatinine 1.1 Est GFR ( Amer) > 60 Est GFR (Non-Af Amer) 50 Random Glucose 137 H Calcium 8.0 L Phosphorus 3.4 Magnesium 2.1 Total Bilirubin 1.4 H AST 45 H D ALT 42 Alkaline Phosphatase 138 H D Total Protein 6.1 Albumin 2.7 L Globulin 3.4 Albumin/Globulin Ratio 0.8 L Procalcitonin Urine Color Urine Appearance Urine pH Ur Specific [place] Urine Protein Urine Glucose (UA) Urine Ketones Urine Blood Urine Nitrate Urine Bilirubin Urine Urobilinogen Ur Leukocyte Esterase Urine RBC Urine WBC Ur Epithelial Cells Amorphous Sediment Urine Bacteria Attending/Attestation - Attestation I have personally seen and examined this patient.: Yes I have fully participated in the care of the patient.: Yes I have reviewed all pertinent clinical information: Yes Notes (Text): This is an addendum to GI progress report dictated by the GI Fellow. The patient was seen and examined earlier. Medical records, lab studies, imagings were reviewed. Last 24 hours events reviewed. Agreed with the above treatment plan as outlined in GI Fellow 's notes with the addition of the following 10/13/18 23:23
[2018-10-13 12:07] LABS: WHITE BLOOD COUNT 4.9 10^3/uL (4.5-11.0)
[2018-10-13 12:09] LABS: ALB/GLOB RATIO 0.8 (1.1-1.8); ALBUMIN 2.7 g/dL (3.0-4.8); ALT/SGPT 42 U/L (7-56); AST/SGOT 45 U/L (14-36); BLOOD UREA NITROGEN 14 mg/dL (7-21); GFR NON-AFRICAN AMERICAN 50
[2018-10-13] MEDS: HYDROmorphone 1 mg/ml ISec IVP PRN (14:34)
--- NOTE | 2018-10-13 14:42 | CP.PCM.CON ---
History of Present Illness - History of Present Illness History of Present Illness: 63 year old female with PMH of autoimmune hepatitis, bladder CA S/P radical cystectomy and ileal conduit, S/P appendectomy, history of gastric ulcers, S/P ventral hernia repair came in to [facility] [place] because of abdominal pain for the past 2 weeks, which worsened in the past 3-4 days, associated with fever yesterday and loss of appetite. She claims to have lost 10-15 pounds over the past 2-3 weeks because she has not been eating. She denies diarrhea, no nausea or vomiting, no headache or dizziness, no chest pain, no SOB, no cough or rhinorrhea, no sore throat. She denies being on antibiotics in the past 3 months. Because of the fever, Infectious Diseases consult is requested to further evaluate and manage. 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) - ENDOCRINE/METABOLIC Hx Endocrine Disorders: No - HEMATOLOGICAL/ONCOLOGICAL Hx Blood Disorders: Yes (autoimmune Hepatitis) Hx Blood Transfusions: No Hx Blood Transfusion Reaction: No - INTEGUMENTARY Hx Dermatological Problems: No - MUSCULOSKELETAL/RHEUMATOLOGICAL Hx Falls: No - GASTROINTESTINAL Hx Gastrointestinal Disorders: Yes (LOAP INCISIONAL HERNIA WITH BX OF OVER 7-27-15,LIVER CIRHOSIS) - GENITOURINARY/GYNECOLOGICAL Hx Genitourinary Disorders: Yes (ILEAL CONDUIT,HYSTERECTOMY 1998) Hx Bladder Cancer: Yes - PSYCHIATRIC Hx Substance Use: No - SURGICAL HISTORY Other/Comment: ILEAL CONDUIT 2013 - ANESTHESIA Hx Anesthesia Reactions: No Hx Malignant Hyperthermia: No Meds Allergies/Adverse Reactions: Allergies Allergy/AdvReac Type Severity Reaction Status Date / Time levofloxacin [From Levaquin] Allergy Severe LOW WBC Verified 03/01/17 10:59 COUNT morphine Allergy Severe RESTLESSNES Verified 03/01/17 10:59 S,PALPITATI ONS Sulfa (Sulfonamide Allergy Severe RASH Verified 03/01/17 10:59 Antibiotics) ketorolac [From Toradol] AdvReac Intermediate feels Verified 10/12/18 19:21 jittery - Medications Medications: Current Medications Hydromorphone HCl (Dilaudid) 1 mg IVP Q4H PRN PRN Reason: Pain, severe (8-10) Last Admin: 10/12/18 20:21 Dose: 1 mg Sodium Chloride (Sodium Chloride 0.9%) 1,000 mls @ 100 mls/hr IV .Q10H AKSHAT Cefepime HCl (Maxipime 1gm) 1 gm in 100 mls @ 100 mls/hr IVPB Q8 AKSHAT; Protocol Last Admin: 10/13/18 05:57 Dose: 100 mls/hr Ondansetron HCl (Zofran Inj) 4 mg IVP Q4H PRN PRN Reason: Nausea/Vomiting Last Admin: 10/12/18 20:20 Dose: 4 mg Pantoprazole Sodium (Protonix Inj) 40 mg IVP DAILY AKSHAT Physical Exam - Constitutional Appears: Chronically Ill - ENT Exam ENT Exam: Mucous Membranes Moist - Neck Exam Neck exam: Negative for: Lymphadenopathy, Meningismus - Respiratory Exam Respiratory Exam: Decreased Breath Sounds - Cardiovascular Exam Cardiovascular Exam: +S1, +S2 - GI/Abdominal Exam GI & Abdominal Exam: Soft. absent: Tenderness Additional comments: right sided ileal conduit in place Results - Vital Signs Recent Vital Signs: Last Vital Signs Temp 97.9 F 10/12/18 17:56 Pulse 87 10/12/18 19:13 Resp 18 10/12/18 19:13 BP 133/81 10/12/18 17:56 Pulse Ox 97 10/12/18 17:56 - Labs Result Diagrams: 10/13/18 11:40 10/13/18 11:40 Labs: Laboratory Results - last 24 hr 10/12/18 10/12/18 10/12/18 14:15 14:15 14:15 WBC 8.9 RBC 3.89 Hgb 10.2 L Hct 30.8 L MCV 79.2 L MCH 26.2 MCHC 33.1 RDW 15.7 H Plt Count 144 Neut % (Auto) 87.4 H Lymph % (Auto) 5.9 L Wilkin % (Auto) 6.7 H Eos % (Auto) 0.0 L Baso % (Auto) 0.0 Lymph # (Auto) 0.5 L Wilkin # (Auto) 0.6 Eos # (Auto) 0.0 Baso # (Auto) 0.00 Absolute Neuts (auto) 7.80 H PT 19.7 H INR 1.77 APTT 32.4 pO2 VBG pH VBG pCO2 VBG HCO3 VBG Total CO2 VBG O2 Sat (Calc) VBG Base Excess VBG Potassium Sodium 131 L Chloride 100 Glucose Lactate FiO2 Crit Value Called To Crit Value Called By Blood Gas Notified Time Potassium 3.7 Carbon Dioxide 23 Anion Gap 12 BUN 15 Creatinine 1.1 Est GFR ( Amer) > 60 Est GFR (Non-Af Amer) 50 Random Glucose 114 H Calcium 8.5 Total Bilirubin 1.6 H AST 61 H ALT 66 H Alkaline Phosphatase 180 H Lactate Dehydrogenase 451 Total Creatine Kinase 38 Troponin I < 0.01 Total Protein 7.3 Albumin 3.3 Globulin 4.0 Albumin/Globulin Ratio 0.8 L Amylase 77 Lipase 106 Venous Blood Potassium Urine Color Urine Appearance Urine pH Ur Specific Bledsoe Urine Protein Urine Glucose (UA) Urine Ketones Urine Blood Urine Nitrate Urine Bilirubin Urine Urobilinogen Ur Leukocyte Esterase 10/12/18 10/12/18 14:15 17:10 WBC RBC Hgb Hct MCV MCH MCHC RDW Plt Count Neut % (Auto) Lymph % (Auto) Wilkin % (Auto) Eos % (Auto) Baso % (Auto) Lymph # (Auto) Wilkin # (Auto) Eos # (Auto) Baso # (Auto) Absolute Neuts (auto) PT INR APTT pO2 57 H VBG pH 7.59 H VBG pCO2 24.0 L VBG HCO3 23.0 VBG Total CO2 23.7 VBG O2 Sat (Calc) 95.7 H VBG Base Excess 2.7 H VBG Potassium 3.5 L Sodium 131.0 L Chloride 101.0 Glucose 115 H Lactate 1.0 FiO2 21.0 Crit Value Called To [facility] Crit Value Called By Ursula goodwin Blood Gas Notified Time 1428 Potassium Carbon Dioxide Anion Gap BUN Creatinine Est GFR ( Amer) Est GFR (Non-Af Amer) Random Glucose Calcium Total Bilirubin AST ALT Alkaline Phosphatase Lactate Dehydrogenase Total Creatine Kinase Troponin I Total Protein Albumin Globulin Albumin/Globulin Ratio Amylase Lipase Venous Blood Potassium 3.5 L Urine Color Cancelled Urine Appearance Cancelled Urine pH Cancelled Ur Specific Bledsoe Cancelled Urine Protein Cancelled Urine Glucose (UA) Cancelled Urine Ketones Cancelled Urine Blood Cancelled Urine Nitrate Cancelled Urine Bilirubin Cancelled Urine Urobilinogen Cancelled Ur Leukocyte Esterase Cancelled Assessment & Plan - Assessment and Plan (Free Text) Plan: Assessment Systemic inflammatory response syndrome with fever, R/O sepsis due to intra-abdominal infection, R/O complicated UTI in this patient with ileal conduit autoimmune hepatitis bladder CA S/P radical cystectomy and ileal conduit S/P appendectomy history of gastric ulcers S/P ventral hernia repair Plan Started cefepime and Flagyl pending blood and urine cx; reviewed CT A/P patient is scheduled for EGD by GI will monitor clinically
[2018-10-14] MEDS: HYDROmorphone 1 mg/ml ISec IVP PRN ×2 (00:39→23:28)
[2018-10-14] MEDS: Sodium Chloride 0.9% 1,000 ML IV SCH ×3 (04:36→21:42)
--- NOTE | 2018-10-14 05:44 | PN ---
DATE: 10/13/2018 ONCOLOGY PROGRESS NOTE LOCATION: Room 373, bed 3. SUBJECTIVE: This is a 63-year-old female with history of autoimmune hepatitis, history of adenocarcinoma of the urinary bladder, status post total cystectomy and ileal conduit, history of stomach ulcer, and presented to the office and then sent to the emergency room for evaluation of progressive abdominal pain of three weeks and fever. The patient was having pain in the epigastric area nonradiating. Pain was initially intermittent, then became constant over the past several days which she graded 10 out of 10. The patient had no aggravating or alleviating symptoms but because of the pain, she was not eating anything, and she has lost 15 pounds over the last three weeks. The patient has rapid workup done in the ER. Ultrasound shows sludge, positive Lofton's signs. CAT scan of the abdomen revealed cholelithiasis but no evidence of acute cholecystitis. The CAT scan also revealed a calculus in the lower pole of the left kidney along with ileal conduit and parastomal hernia with moderate hydronephrosis in both the ureters along with a temperature that the patient had of 101. Blood cultures were done, procalcitonin was done. Urine cultures were sent, and the patient was started appropriately on antibiotics with cefepime and Flagyl. Subjectively, the patient feels that she is almost 100% improved. She has not required any narcotics overnight. The patient says she was sleeping well throughout the night and feels much improved today and the temperature has been in the below 99 this morning. PHYSICAL EXAMINATION: GENERAL: The patient appears to be well in no acute distress. VITAL SIGNS: T-max is 99.4, pulse is 107, respirations 20. Blood pressure is normal. HEENT: Head is normocephalic and atraumatic. Conjunctivae pale. Sclerae are anicteric. Pupils are equally reactive to light and accommodation. Examination of the oropharynx reveals no oropharyngeal lesions. NECK: Supple. There is no adenopathy. No jugular venous distention noted. LUNGS: Clear to percussion and auscultation. CARDIOVASCULAR SYSTEM: Examination of the cardiovascular system revealed S1, S2 to be normal. No gallop or murmur is heard. ABDOMEN: Soft. Mildly distended. The patient has some epigastric tenderness but no way compared to what it was yesterday. No rebound, rigidity, or guarding is noted. The patient has an ileal conduit in the right lower quadrant and has a parastomal hernia as well in the surrounding area. No other masses are felt. EXTREMITIES: Revealed no cyanosis, clubbing, or edema. BACK: Examination of the back reveals no specific findings. No back pain is noted. NEUROLOGIC EXAMINATION: Reveals higher functions to be normal. No focal deficits are noted. PSYCHIATRIC EXAMINATION: Reveals normal affect and normal mood. SKIN: Dry. No skin lesions are noted. MEDICATIONS: The patient's medications were reviewed. She has not qualified to take any pain medicines, but she did require IV Dilaudid yesterday when she came in. The patient is on IV fluids 100 mL an hour. She is on cefepime 1 g IV every 8 hours. She is on Flagyl 500 mg IV piggyback every 8 hours, Zofran 4 mg IV every 6 hours p.r.n., and pantoprazole 40 mg IVP daily. LABORATORY DATA: Labs were reviewed. White count is 4.9, hemoglobin 8.8, and platelet count is 85,000. Electrolytes are unremarkable. Random sugar is 137, calcium is 8, total bilirubin is 1.4, AST of 45, ALT of 42, alkaline phosphatase of 138 which was higher when she came in yesterday. Total protein is 6.1 with an albumin of 2.7. Blood cultures showed no growth at 24 hours. Urine protein is 30, likely cloudy. Urine blood is small. Urine nitrites are negative. Leukocyte esterase is high. Lot of rbc's and white cells too numerous to count in the urine sample obtained directly from the ileal conduit. Urine bacteria is large. The cultures are still pending. ASSESSMENT, NOTES, AND PLAN: A 63-year-old female who is admitted with fevers, chills, significant epigastric pain along with now evidence of what appears to be probably urosepsis. Etiology of the epigastric pain is unclear, could be related to several factors including internal hernias and dragging of the mesentery, though one would be concerned about gastrointestinal issues as well that may be causing that significant pain which today is much better on proton pump inhibitors, intravenous fluids. The patient was able to have a decent meal. I told the patient that it might been important for us to do an upper endoscopy. Still have an idea which will wait for input from Dr. Robles, the urologist to make sure the hydronephrosis is not related to some stricture as the ureters have been implanted into the ileal conduit and over several years stricture could have developed. That could be a positive factor for the infection. Hemoglobin and hematocrit has dropped. This has to be monitored too whether this is related to delusional or is this a real blood count specifically when she came in as she was dehydrated. All these are going to be monitored very carefully. We will follow the patient very carefully and make the appropriate recommendations. Infectious Disease and Gastroenterology are on the case already, and they are going to be following the course of the patient as well. Surgical team has seen the patient, and they feel that there is nothing surgical warranted at this point in time. Please make a note, this is a complex patient with multiple comorbid medical issues. Time spent with the patient was greater than 45 minutes. Matthew De La Cruz MD
[2018-10-14] MEDS: metroNIDAZOLE IV 500 mg/100 ml 500 MG/100 ML BAG IVPB SCH ×2 (06:46→14:26)
[2018-10-14 07:00] LABS: EOS # 0.1 (0.0-0.7); HEMOGLOBIN 9.1 g/dL (12.0-16.0); LYMPH # 0.8 (1.2-3.4); LYMPH % 14.7 % (22.0-35.0); MEAN CELL VOLUME 81.2 fl (80.0-105.0); MEAN CORPUSCULAR HEMOGLOBIN 25.1 pg (25.0-35.0); MONO # 0.3 (0.1-0.6); MONO % 5.7 % (1.0-6.0); PLATELET COUNT 137 10^3/uL (120.0-450.0); RBC 3.62 10^6/uL (3.5-6.1); RED CELL DISTRIBUTION WIDTH 16.2 % (11.5-14.5); WHITE BLOOD COUNT 5.1 10^3/uL (4.5-11.0)
[2018-10-14 07:28] LABS: ALB/GLOB RATIO 0.8 (1.1-1.8); ALBUMIN 2.6 g/dL (3.0-4.8); ALT/SGPT 43 U/L (7-56); AST/SGOT 41 U/L (14-36); BLOOD UREA NITROGEN 12 mg/dL (7-21); CALCIUM 8.2 mg/dL (8.4-10.5); GFR NON-AFRICAN AMERICAN 56
[2018-10-14 08:55] LABS: INR 1.69; PROTHROMBIN TIME 19.1 SECONDS (9.4-12.5)
--- NOTE | 2018-10-14 09:40 | CP.PCM.PN ---
Subjective - Date & Time of Evaluation Date of Evaluation: 10/14/18 Time of Evaluation: 09:37 - Subjective Subjective: Surgery Progress Note for Dr. Cornelius S/E at bedside. Mild abdominal pain still present at times. Denies n/v during interview. Denies fevers, chills, chest pain, sob. Objective - Vital Signs/Intake and Output Vital Signs (last 24 hours): Temp Pulse Resp BP Pulse Ox 98.4 F 83 20 134/81 95 10/14/18 08:35 10/14/18 08:35 10/14/18 08:35 10/14/18 08:35 10/14/18 08:35 Intake and Output: 10/14/18 10/14/18 06:59 18:59 Intake Total 2460 Output Total 2100 Balance 360 - Medications Medications: Current Medications Hydromorphone HCl (Dilaudid) 1 mg IVP Q4H PRN PRN Reason: Pain, severe (8-10) Last Admin: 10/14/18 00:39 Dose: 1 mg Sodium Chloride (Sodium Chloride 0.9%) 1,000 mls @ 100 mls/hr IV .Q10H AKSHAT Last Admin: 10/14/18 04:36 Dose: 100 mls/hr Metronidazole (Flagyl) 500 mg in 100 mls @ 100 mls/hr IVPB Q8 AKSHAT; Protocol Last Admin: 10/14/18 06:46 Dose: 100 mls/hr Cefepime HCl (Maxipime 1gm) 1 gm in 100 mls @ 100 mls/hr IVPB Q12 AKSHAT; Protocol Last Admin: 10/13/18 21:15 Dose: 100 mls/hr Ondansetron HCl (Zofran Inj) 4 mg IVP Q4H PRN PRN Reason: Nausea/Vomiting Last Admin: 10/14/18 00:38 Dose: 4 mg Pantoprazole Sodium (Protonix Inj) 40 mg IVP DAILY AKSHAT Last Admin: 10/13/18 10:05 Dose: 40 mg - Labs Labs: 10/14/18 06:30 10/14/18 06:30 PT 19.1 SECONDS (9.4-12.5) H 10/14/18 08:35 INR 1.69 10/14/18 08:35 APTT 32.4 Seconds (26.9-38.3) 10/12/18 14:15 - Constitutional Appears: Non-toxic, No Acute Distress - Head Exam Head Exam: NORMAL INSPECTION - Eye Exam Eye Exam: EOMI - ENT Exam ENT Exam: Mucous Membranes Moist - Respiratory Exam Respiratory Exam: NORMAL BREATHING PATTERN - Cardiovascular Exam Cardiovascular Exam: absent: JVD - GI/Abdominal Exam GI & Abdominal Exam: Soft, Normal Bowel Sounds. absent: Tenderness - Neurological Exam Neurological Exam: Alert, Awake, Oriented x3 - Psychiatric Exam Psychiatric exam: Normal Affect, Normal Mood - Skin Skin Exam: Dry, Intact, Normal Color Assessment and Plan - Assessment and Plan (Free Text) Assessment: 63 year old F w/ abdominal pain, likely gastritis, r/o cholecystitis Plan: NPO EGD with GI team; F/U endoscopy and GI recs Pending EGD results, will tailor surgical plan No surgical intervention currently planned, will wait for endoscopy Further recs as per Dr. Cornelius PGY-1 Luna Fenton
[2018-10-14] MEDS: Cefepime 1gm in NS 100ml 1 GM/100 ML BAG IVPB SCH (10:46)
[2018-10-14] MEDS ORDERED: Meropenem IV 1 gm in NS 1 GM/50 ML BAG IVPB SCH ×2 (14:15→22:00)
[2018-10-14] MEDS ORDERED: Meropenem IV 1 gm in NS 1 GM/50 ML BAG IVPB STA (14:18)
[2018-10-14] MEDS ORDERED: Propofol 10 mg/ml Inj (20 ML) ONE (14:32)
[2018-10-14 17:20] LABS: INR 1.6; PROTHROMBIN TIME 17.8 SECONDS (9.4-12.5)
--- NOTE | 2018-10-14 17:56 | PN ---
DATE: 10/14/2018 This is [facility]'s hospital visit on the medical floor. For Dr. De La Cruz. SUBJECTIVE: The patient is a 63-year-old female with known history of adenocarcinoma of the bowel and bladder status post radical resection with ileal conduit, status post two hernia repairs with severe epigastric pain associated with nausea now. The patient is known to have positive urine culture for ESBL, positive E. coli, just called from [facility] Microbiology department with the patient presently on Maxipime and Flagyl. A phone call conversation was held with Dr. Marroquin, Infectious Disease clinical documentation consultant who recommends discontinuing the Maxipime and Flagyl in favor of meropenem 1 g IV every 8 hours first dose stat, which was called into the nursing floor and orders entered in the computer with phone call conversation held with pharmacist regarding her allergic phenomenon including patient's ALLERGY TO LEVAQUIN, MORPHINE, SULFA, AND KETOROLAC with no contraindications for the meropenem. We have also put contact precautions for her ESBL culture findings. With this, the patient is otherwise resting comfortably in no acute distress this visit with her nausea improved, IV fluids continue. OBJECTIVE/PHYSICAL EXAMINATION: VITAL SIGNS: Temperature 97.8, pulse 88, respirations 20, blood pressure 137/73, and pulse ox 98%. HEENT: Unremarkable. NECK: Supple. HEART: Regular rate. LUNGS: Clear. ABDOMEN: Soft, minimally distended. No rebound. Ileal conduit right lower quadrant with parastomal hernia. EXTREMITIES: No edema. SKIN: Warm and dry. NEUROLOGIC: Awake and alert. LABORATORY DATA: The patient's labs were done. White blood cell count of 5.1, hemoglobin of 9.1, hematocrit of 29.4 and platelet count of 137,000 with a metabolic panel showing a BUN of 12, creatinine of 1.0, AST of 41, alk phos 143, procalcitonin 0.33. Her INR is 1.69 with a urine culture positive for Gram-positive cocci, Gram-negative rods, now also known to be ESBL positive. ASSESSMENT: For this patient, is that of extended spectrum beta-lactamases Escherichia coli positive urine culture, severe abdominal pain, urosepsis early, history of adenocarcinoma of the bowel/bladder status post radical resection with ileal conduit, status post hernia repair, and nausea. PLAN: For this patient, after conversation with Dr. Marroquin and Dr. De La Cruz is to continue present medical regimen, we will change antibiotics as described with the patient monitoring clinically and with labs. This is a complex patient with a comprehensive medically necessary and appropriate visit carried out in excess of 40 minutes with the patient's questions answered to her satisfaction. Bala Arellano MD
[2018-10-14] MEDS: Meropenem IV 1 gm in NS 1 GM/50 ML BAG IVPB SCH (23:27)
--- NOTE | 2018-10-14 23:35 | PN ---
DATE: 10/14/2018 SUBJECTIVE: Patient is seen in bed in no acute distress, nontoxic. PHYSICAL EXAMINATION VITAL SIGNS: Temperature of 98, blood pressure is 150/70, respiratory rate 20, heart rate of 84. HEENT: Unremarkable. NECK: Supple. LUNGS: Decreased breath sounds. HEART: Normal S1 and S2. ABDOMEN: Soft. LABORATORY DATA: Reveals white count of 5.1, hemoglobin of 9. Chemistries are noted. There are no reviewed. Microbiology reveals a kidney culture are noted. The blood cultures are negative. One urine culture from 10/12/2018 has ESBL E. coli. ASSESSMENT AND PLAN: A 63-year-old female with history of autoimmune hepatitis, bladder cancer status post radical cystectomy with ileal conduit who is having fevers and chills, is outpatient. Now with sepsis with extended-spectrum b-lactamase producing Escherichia coli urine as the source. We will discontinue the cefepime and start meropenem. We will follow with you. David Marroquin MD
[2018-10-15] MEDS: Meropenem IV 1 gm in NS 1 GM/50 ML BAG IVPB SCH ×3 (05:22→22:30)
[2018-10-15 08:40] LABS: EOS # 0.1 (0.0-0.7); EOS % 0.9 % (1.5-5.0); LYMPH # 0.8 (1.2-3.4); LYMPH % 15.3 % (22.0-35.0); MEAN CELL VOLUME 81.7 fl (80.0-105.0); MEAN CORPUSCULAR HEMOGLOBIN 25.3 pg (25.0-35.0); MEAN CORPUSCULAR HGB CONC 30.9 g/dl (31.0-37.0); MONO # 0.2 (0.1-0.6); MONO % 3.6 % (1.0-6.0); PLATELET COUNT 159 10^3/uL (120.0-450.0); RBC 3.56 10^6/uL (3.5-6.1); RED CELL DISTRIBUTION WIDTH 16.4 % (11.5-14.5); WHITE BLOOD COUNT 5.3 10^3/uL (4.5-11.0)
[2018-10-15 08:49] LABS: ALB/GLOB RATIO 0.8 (1.1-1.8); ALBUMIN 2.6 g/dL (3.0-4.8); ALT/SGPT 35 U/L (7-56); AST/SGOT 29 U/L (14-36); BLOOD UREA NITROGEN 13 mg/dL (7-21); GFR NON-AFRICAN AMERICAN 56
--- NOTE | 2018-10-15 10:05 | CP.PCM.PN ---
Subjective - Date & Time of Evaluation Date of Evaluation: 10/15/18 Time of Evaluation: 07:15 - Subjective Subjective: General Surgery progress note for Dr. Hansen Patient seen and examined this am at bedside. Patient has no complaints at this time. no acute overnight events. Patient currently denies f/c, n/v abdominal pain and is having normal BM and passing flatus. Objective - Vital Signs/Intake and Output Vital Signs (last 24 hours): Temp Pulse Resp BP Pulse Ox 98.6 F 80 20 136/79 95 10/15/18 06:00 10/15/18 06:00 10/15/18 06:00 10/15/18 06:00 10/15/18 06:00 Intake and Output: 10/15/18 10/15/18 06:59 18:59 Intake Total 720 Output Total 1700 Balance -980 - Medications Medications: Current Medications Hydromorphone HCl (Dilaudid) 1 mg IVP Q4H PRN PRN Reason: Pain, severe (8-10) Last Admin: 10/14/18 23:28 Dose: 1 mg Sodium Chloride (Sodium Chloride 0.9%) 1,000 mls @ 100 mls/hr IV .Q10H AKSHAT Last Admin: 10/14/18 21:42 Dose: 100 mls/hr Meropenem (Merrem Iv 1 Gm Premix) 1 gm in 50 mls @ 12.5 mls/hr IVPB Q8 AKSHAT; Protocol Stop: 10/23/18 22:01 Last Admin: 10/15/18 05:22 Dose: 12.5 mls/hr Ondansetron HCl (Zofran Inj) 4 mg IVP Q4H PRN PRN Reason: Nausea/Vomiting Last Admin: 10/14/18 23:30 Dose: 4 mg Pantoprazole Sodium (Protonix Inj) 40 mg IVP DAILY AKSHAT Last Admin: 10/14/18 10:46 Dose: 40 mg - Labs Labs: 10/15/18 08:19 10/15/18 08:19 PT 17.8 SECONDS (9.4-12.5) H 10/14/18 16:30 INR 1.60 10/14/18 16:30 APTT 32.4 Seconds (26.9-38.3) 10/12/18 14:15 - Constitutional Appears: Well, Non-toxic, No Acute Distress - Head Exam Head Exam: ATRAUMATIC - Eye Exam Eye Exam: EOMI - ENT Exam ENT Exam: Mucous Membranes Moist - Respiratory Exam Respiratory Exam: NORMAL BREATHING PATTERN - Cardiovascular Exam Cardiovascular Exam: REGULAR RHYTHM - GI/Abdominal Exam GI & Abdominal Exam: Soft. absent: Guarding, Tenderness, Rebound - Neurological Exam Neurological Exam: Alert, Awake, Oriented x3 - Psychiatric Exam Psychiatric exam: Normal Affect, Normal Mood - Skin Skin Exam: Dry, Intact, Normal Color, Warm Assessment and Plan - Assessment and Plan (Free Text) Assessment: 63 yr old female PMH gastric ulcer with abdominal pain and gallbladder sludge on US, surgery consulted to r/o cholecystitis Plan: EGD findings consistent with gastritis pain has clinically improved, bili and LFT normalized recommend outpatient follow up for elective Cholecystectomy no acute surgical intervention needed discussed with Dr. Adryan Larsen, PGY 1
--- NOTE | 2018-10-15 12:07 | CP.PCM.PN ---
<Anant Meyer - Last Filed: 10/15/18 12:08> Subjective - Date & Time of Evaluation Date of Evaluation: 10/15/18 Time of Evaluation: 08:55 - Subjective Subjective: PGY5 GI Follow-up Pt seen and examined bedside Tolerating diet Denies any and pain Denies any fever, chills or diaphoresis ROS:12 point ROS conducted, neg other than above Objective - Vital Signs/Intake and Output Vital Signs (last 24 hours): Temp Pulse Resp BP Pulse Ox 98.6 F 80 20 136/79 95 10/15/18 06:00 10/15/18 06:00 10/15/18 06:00 10/15/18 06:00 10/15/18 06:00 Intake and Output: 10/15/18 10/15/18 06:59 18:59 Intake Total 720 Output Total 1700 Balance -980 - Medications Medications: Current Medications Hydromorphone HCl (Dilaudid) 1 mg IVP Q4H PRN PRN Reason: Pain, severe (8-10) Last Admin: 10/14/18 23:28 Dose: 1 mg Sodium Chloride (Sodium Chloride 0.9%) 1,000 mls @ 100 mls/hr IV .Q10H AKSHAT Last Admin: 10/14/18 21:42 Dose: 100 mls/hr Meropenem (Merrem Iv 1 Gm Premix) 1 gm in 50 mls @ 12.5 mls/hr IVPB Q8 AKSHAT; Protocol Stop: 10/23/18 22:01 Last Admin: 10/15/18 05:22 Dose: 12.5 mls/hr Ondansetron HCl (Zofran Inj) 4 mg IVP Q4H PRN PRN Reason: Nausea/Vomiting Last Admin: 10/14/18 23:30 Dose: 4 mg Pantoprazole Sodium (Protonix Inj) 40 mg IVP DAILY AKSHAT Last Admin: 10/15/18 10:06 Dose: 40 mg - Labs Labs: 10/15/18 08:19 10/15/18 08:19 PT 17.8 SECONDS (9.4-12.5) H 10/14/18 16:30 INR 1.60 10/14/18 16:30 APTT 32.4 Seconds (26.9-38.3) 10/12/18 14:15 - Constitutional Appears: Well, No Acute Distress - Head Exam Head Exam: ATRAUMATIC, NORMOCEPHALIC - Eye Exam Eye Exam: Normal appearance - ENT Exam ENT Exam: Mucous Membranes Moist, Normal Exam - Respiratory Exam Respiratory Exam: Clear to Ausculation Bilateral, NORMAL BREATHING PATTERN. absent: Rales, Rhonchi, Wheezes - Cardiovascular Exam Cardiovascular Exam: REGULAR RHYTHM, +S1, +S2 - GI/Abdominal Exam GI & Abdominal Exam: Soft, Normal Bowel Sounds. absent: Bruit, Distended, Firm, Guarding, Rigid, Tenderness, Organomegaly Additional comments: ileal conduit intact, no bleeding, clear urine in bag - Extremities Exam Extremities Exam: absent: Joint Swelling, Pedal Edema - Neurological Exam Neurological Exam: Alert, Awake, Oriented x3 - Psychiatric Exam Psychiatric exam: Normal Affect, Normal Mood - Skin Skin Exam: Dry, Intact, Normal Color, Warm Assessment and Plan - Assessment and Plan (Free Text) Assessment: Qing Reyes is a 63F w/ hx of autoimmune hepatitis, bladder CA s/p total cystectomy, and stomach ulcer presents to ED for evaluation of abdominal pain x 3 weeks and fever. S/P EGD mild gastritis greater curv Mild gastritis Abd pain, 2/2 UTI? UTI, ESBL Fever 2/2 above hx of autoimmune hepatitis hx of bladder ca s/ cystectomy and ileal conduit Plan: -continue antibiotics -ID consulted, appreciate their input -continue protonix 40mg PO daily -continue abx as per ID, Merrem -No additional tests planned from GI standpoint D/W Dr. Johnson <Jose A Johnson V - Last Filed: 10/15/18 12:17> Objective - Vital Signs/Intake and Output Vital Signs (last 24 hours): Temp Pulse Resp BP Pulse Ox 98.6 F 80 20 136/79 95 10/15/18 06:00 10/15/18 06:00 10/15/18 06:00 10/15/18 06:00 10/15/18 06:00 Intake and Output: 10/15/18 10/15/18 06:59 18:59 Intake Total 720 Output Total 1700 Balance -980 - Medications Medications: Current Medications Hydromorphone HCl (Dilaudid) 1 mg IVP Q4H PRN PRN Reason: Pain, severe (8-10) Last Admin: 10/14/18 23:28 Dose: 1 mg Sodium Chloride (Sodium Chloride 0.9%) 1,000 mls @ 100 mls/hr IV .Q10H AKSHAT Last Admin: 10/14/18 21:42 Dose: 100 mls/hr Meropenem (Merrem Iv 1 Gm Premix) 1 gm in 50 mls @ 12.5 mls/hr IVPB Q8 AKSHAT; Protocol Stop: 10/23/18 22:01 Last Admin: 10/15/18 05:22 Dose: 12.5 mls/hr Ondansetron HCl (Zofran Inj) 4 mg IVP Q4H PRN PRN Reason: Nausea/Vomiting Last Admin: 10/14/18 23:30 Dose: 4 mg Pantoprazole Sodium (Protonix Inj) 40 mg IVP DAILY AKSHAT Last Admin: 10/15/18 10:06 Dose: 40 mg - Labs Labs: 10/15/18 08:19 10/15/18 08:19 PT 17.8 SECONDS (9.4-12.5) H 10/14/18 16:30 INR 1.60 10/14/18 16:30 APTT 32.4 Seconds (26.9-38.3) 10/12/18 14:15 Attending/Attestation - Attestation I have personally seen and examined this patient.: Yes I have fully participated in the care of the patient.: Yes I have reviewed all pertinent clinical information, including history, physical exam and plan: Yes Notes (Text): This is an addendum to GI progress report dictated by the GI Fellow. The patient was seen and examined earlier. Medical records, lab studies, imagings were reviewed. Last 24 hours events reviewed. Agreed with the above treatment plan as outlined in GI Fellow 's notes with the addition of the following Continue antibiotics as per ID Patient was on as needed dose of PPI can continue that Patient needed surveillance for HCC in view of cirrhosis Surgical follow-up for para ileal conduit hernia Patient does have small sludge in the gallbladder with mild distention no clinical evidence of cholecystitis no intervention recommended 10/15/18 12:15
[2018-10-15] MEDS: Sodium Chloride 0.9% 1,000 ML IV SCH (19:35)
--- NOTE | 2018-10-15 20:01 | PN ---
DATE: 10/15/2018 SUBJECTIVE: The patient is in bed, in no acute distress, nontoxic. PHYSICAL EXAMINATION: VITAL SIGNS: Temperature is 98, blood pressure is 136/70, respiratory rate of 20, heart rate of 80. HEENT: Unremarkable. NECK: Supple. LUNGS: Decreased breath sounds. HEART: Normal S1, S2. ABDOMEN: Soft, nontender. LABORATORY DATA: White count is 5.3, coagulation is noted. Chemistries are reviewed. Urinalysis is noted. Microbiology with E. Coli, ESBL, and group B, beta-hemolytic Strep. The patient's CAT scan of the abdomen and pelvis is reviewed. The patient does have an ileostomy tube. Dr. Johnson's note is reviewed. progress note is reviewed, which is incomplete and no assessment at this time. ASSESSMENT AND PLAN: A 63-year-old female with autoimmune hepatitis, urinary bladder cancer status post radical cystectomy with an ileal conduit, now with sepsis with extended spectrum beta-lactamase Escherichia coli, pyelonephritis. She will need 10 days of meropenem, today is day #2 of 10 days of meropenem. David Marroquin MD
[2018-10-16] MEDS: HYDROmorphone 1 mg/ml ISec IVP PRN (00:31)
--- NOTE | 2018-10-16 04:37 | PN ---
DATE: 10/15/2018 LOCATION: The patient is in room 371, bed 2. SUBJECTIVE: The patient is sitting out of bed in the chair, in no acute distress. Nontoxic. The patient tells me she is feeing immensely improved since the admission of 10/12/2018. PHYSICAL EXAMINATION: VITAL SIGNS: Stable. T-max is 98.4, blood pressure is 136/70, respirations 20, heart rate is 80. HEENT: Head is normocephalic, atraumatic. Conjunctivae pale. Sclerae anicteric. Pupils are equally reactive to light and accommodation. Examination of the oropharynx reveals no oropharyngeal lesions. NECK: Supple. There is no adenopathy. LUNGS: Clear to percussion and auscultation. HEART: PMI within the fifth intercostal space inside the midclavicular line. S1 and S2 are normal. No gallop or murmurs heard. ABDOMEN: Soft. The patient has no epigastric tenderness as that has decreased tremendously. The patient has an ileal conduit in the right lower quadrant of the abdomen. Past stomal hernia is noted. No other masses are felt. EXTREMITIES: No cyanosis, clubbing, or edema. NEUROLOGIC: There is no focal deficit. GENITOURINARY AND RECTAL: Deferred. LABORATORY DATA: Reveals a white count of 5.3. Chemistries are reviewed and normal. Urinalysis that was done on 10/12/2018 when the patient came in with temperature of 101 reveals E. coli, ESBL, and group B beta-hemolytic Strep. The patient has been started on meropenem. CAT scan of the abdomen and pelvis was reviewed on the date of admission, did not show anything very specific. The patient has cholelithiasis. Stone in the lower pole of the left kidney. No other masses were noted. The patient has a liver that is smaller related to her autoimmune hepatitis and splenomegaly. ASSESSMENT, NOTES, AND PLAN: The patient was admitted with fever and possible urosepsis, underwent an upper endoscopy on Wednesday which revealed no acute findings. Urine that was coming through the ileal conduit on admission was gold and yellow in color. The patient was dehydrated and the urine was sent for analysis directly from the ileostomy, not from the ileal conduit and that was confirmed to be infection. The patient since then has improved and the antibiotics have been changed because of the recent findings. As per Infectious Disease, the patient will need 10 days of meropenem and today is day 2 of the day 10. The patient may have to go home for the rest of the antibiotics. For that, we may have to place a peripherally inserted central catheter line. We will check with the patient if she wants to come to the outpatient clinic on a daily basis, so that we could finish the antibiotics with peripheral IVs rather than sticking over the peripherally inserted central catheter line. Routine post-exam instructions have been given to the patient. We will follow the patient very carefully. Labs for morning have been requested and I have told her that her CBC had shown the hemoglobin and hematocrit had dropped. Platelet count is around 87 which is normal for her and hemoglobin of 9 was of concern to me as the hemoglobin in her case in the past has been in the high 11s and 12s. We will check her iron levels as well during this admission and then make appropriate recommendations. Please make a note this is a complex patient with multiple comorbid issues. Time spent with the patient was in excess of 45 minutes, correlating all the information and discussing with the patient regarding further treatment plans. Matthew De La Cruz MD
[2018-10-16] MEDS: Meropenem IV 1 gm in NS 1 GM/50 ML BAG IVPB SCH ×3 (05:20→21:06)
--- NOTE | 2018-10-16 14:19 | PN ---
DATE: 10/16/2018 SUBJECTIVE: The patient is in bed in no acute distress, nontoxic. PHYSICAL EXAMINATION VITAL SIGNS: On exam, temperature is 98, blood pressure is 130/70 and respiratory of 16. HEENT: Unremarkable. NECK: Supple. LUNGS: Have decreased breath sounds. HEART: Normal S1 and S2. ABDOMEN: Soft. LABORATORY DATA: Laboratory examination is reviewed. Microbiology is reviewed. ASSESSMENT AND PLAN: This is a 63-year-old female with autoimmune hepatitis, urinary bladder cancer status post radical cystectomy with ileoconduit admitted with #1 is sepsis with extended spectrum beta-lactamases Escherichia coli pyelonephritis. Today is day #3 of [address] De La Cruz's note from yesterday is reviewed and appreciated. David Marroquin MD
--- NOTE | 2018-10-16 14:38 | CP.PCM.PN ---
<Anant Meyer - Last Filed: 10/16/18 14:38> Subjective - Date & Time of Evaluation Date of Evaluation: 10/16/18 Time of Evaluation: 09:00 - Subjective Subjective: PGY5 GI Consult Pt seen and examined bedside Denies any abd pain, nausea, vomiting or diarrhea Denies any rectal bleeding, hematemesis ROS: 12 point ROS conducted neg other than above Objective - Vital Signs/Intake and Output Vital Signs (last 24 hours): Temp Pulse Resp BP Pulse Ox 98.1 F 72 18 138/79 95 10/16/18 06:00 10/16/18 06:00 10/16/18 06:00 10/16/18 06:00 10/16/18 06:00 Intake and Output: 10/16/18 10/16/18 06:59 18:59 Intake Total 920 Output Total 600 60 Balance 320 -60 - Medications Medications: Current Medications Alprazolam (Xanax) 0.25 mg PO HS PRN; Protocol PRN Reason: Insomnia Stop: 10/23/18 14:28 Hydromorphone HCl (Dilaudid) 1 mg IVP Q4H PRN PRN Reason: Pain, severe (8-10) Last Admin: 10/16/18 00:31 Dose: 1 mg Meropenem (Merrem Iv 1 Gm Premix) 1 gm in 50 mls @ 12.5 mls/hr IVPB Q8 AKSHAT; Protocol Stop: 10/23/18 22:01 Last Admin: 10/16/18 14:01 Dose: 12.5 mls/hr Ondansetron HCl (Zofran Inj) 4 mg IVP Q4H PRN PRN Reason: Nausea/Vomiting Last Admin: 10/16/18 00:32 Dose: 4 mg Pantoprazole Sodium (Protonix Inj) 40 mg IVP DAILY AKSHAT Last Admin: 10/16/18 09:18 Dose: 40 mg - Labs Labs: 10/15/18 08:19 10/15/18 08:19 PT 17.8 SECONDS (9.4-12.5) H 10/14/18 16:30 INR 1.60 10/14/18 16:30 APTT 32.4 Seconds (26.9-38.3) 10/12/18 14:15 - Constitutional Appears: Well, No Acute Distress - Head Exam Head Exam: ATRAUMATIC, NORMOCEPHALIC - Eye Exam Eye Exam: Normal appearance - ENT Exam ENT Exam: Mucous Membranes Moist, Normal Exam - Respiratory Exam Respiratory Exam: Clear to Ausculation Bilateral, NORMAL BREATHING PATTERN. absent: Rales, Rhonchi, Wheezes, Respiratory Distress - Cardiovascular Exam Cardiovascular Exam: REGULAR RHYTHM, +S1, +S2 - GI/Abdominal Exam GI & Abdominal Exam: Soft, Normal Bowel Sounds, Organomegaly, Rebound. absent: Distended, Firm, Guarding, Rigid, Tenderness, Pulsatile Mass - Extremities Exam Extremities Exam: absent: Joint Swelling, Pedal Edema - Neurological Exam Neurological Exam: Alert, Awake, Oriented x3 - Psychiatric Exam Psychiatric exam: Normal Affect, Normal Mood - Skin Skin Exam: Dry, Intact, Normal Color, Warm Assessment and Plan - Assessment and Plan (Free Text) Assessment: Qing Reyes is a 63F w/ hx of autoimmune hepatitis, bladder CA s/p total cystectomy, and stomach ulcer presents to ED for evaluation of abdominal pain x 3 weeks and fever. S/P EGD mild gastritis greater curv Mild gastritis Abd pain, 2/2 UTI? UTI, ESBL Fever 2/2 above (resolved) Anemia hx of autoimmune hepatitis hx of bladder ca s/ cystectomy and ileal conduit Plan: -continue antibiotics -ID consulted, appreciate their input -continue protonix 40mg PO daily -continue abx as per ID, Merrem -recommend colonoscopy as an oupt for w/u of anemia, pt advised to f/u as an outpt with Dr. Johnson, pt agreed D/W Dr. Johnson <Jose A Johnson V - Last Filed: 10/16/18 22:46> Objective - Vital Signs/Intake and Output Vital Signs (last 24 hours): Temp Pulse Resp BP Pulse Ox 98.2 F 77 20 149/89 95 10/16/18 17:49 10/16/18 17:49 10/16/18 17:49 10/16/18 17:49 10/16/18 17:49 Intake and Output: 10/16/18 10/17/18 18:59 06:59 Intake Total 650 Output Total 60 Balance 590 - Medications Medications: Current Medications Alprazolam (Xanax) 0.25 mg PO HS PRN; Protocol PRN Reason: Insomnia Stop: 10/23/18 14:28 Last Admin: 10/16/18 21:16 Dose: 0.25 mg Meropenem (Merrem Iv 1 Gm Premix) 1 gm in 50 mls @ 12.5 mls/hr IVPB Q8 AKSHAT; Protocol Stop: 10/23/18 22:01 Last Admin: 10/16/18 21:06 Dose: 12.5 mls/hr Ondansetron HCl (Zofran Inj) 4 mg IVP Q4H PRN PRN Reason: Nausea/Vomiting Last Admin: 10/16/18 00:32 Dose: 4 mg Pantoprazole Sodium (Protonix Inj) 40 mg IVP DAILY AKSHAT Last Admin: 10/16/18 09:18 Dose: 40 mg - Labs Labs: 10/15/18 08:19 10/15/18 08:19 PT 17.8 SECONDS (9.4-12.5) H 10/14/18 16:30 INR 1.60 10/14/18 16:30 APTT 32.4 Seconds (26.9-38.3) 10/12/18 14:15 Attending/Attestation - Attestation I have personally seen and examined this patient.: Yes I have fully participated in the care of the patient.: Yes I have reviewed all pertinent clinical information, including history, physical exam and plan: Yes Notes (Text): This is an addendum to GI progress report dictated by the GI Fellow. The patient was seen and examined earlier. Medical records, lab studies, imagings were reviewed. Last 24 hours events reviewed. Agreed with the above treatment plan as outlined in GI Fellow 's notes with the addition of the following Patient was feeling better Tolerating diet Abdomen soft nontender Discussed with the Dr. De La Cruz regarding drop in blood count, no obvious GI blood loss noticed Patient would benefit from elective colonoscopy evaluation Follow-up hemoglobin hematocrit 10/16/18 22:45
--- NOTE | 2018-10-17 03:03 | PN ---
DATE: 10/16/2018 LOCATION: The patient is in room 371, bed 2. SUBJECTIVE: The patient is seen in bed. She is sitting out of bed, had a good morning, had breakfast. No nausea. No vomiting. No abdominal pain. PHYSICAL EXAMINATION: GENERAL: Physical examination reveals the patient to be awake, alert, and oriented, in no acute distress. VITAL SIGNS: Stable. T-max is 98.4, blood pressure is 130/70, respirations 16. HEENT: Head is normocephalic and atraumatic. Conjunctivae pale. Sclerae are anicteric. Pupils are equally reactive to light and accommodation. Examination of the oropharynx reveals no oropharyngeal lesions. Tongue is moist. No ulcerations are noted. NECK: Supple. There is no adenopathy. No jugular venous distention noted. LUNGS: Clear to percussion and auscultation. CARDIOVASCULAR SYSTEM: Examination of the cardiovascular system revealed S1, S2 to be normal. No gallop or murmur is heard. ABDOMEN: Soft. The patient has an ileal conduit in the right lower quadrant of the abdomen. The patient has a parastomal hernia. Previously noted epigastric discomfort or tenderness is gone. EXTREMITIES: Revealed no cyanosis, clubbing, or edema. LABORATORY DATA: Reviewed and is stable. ASSESSMENT, NOTES, AND PLAN: The patient is going to improve, and she is currently on antibiotics for urosepsis, status post esophagogastroduodenoscopy. The patient has normocytic normochromic anemia, which will be worked up as an outpatient. We will check her iron levels as well for the a.m. The patient, otherwise, seems to be holding her own. I discussed the case with Dr. Johnson and Dr. Marroquin. The patient will need an outpatient colonoscopy for completion, the last colonoscopy being done several years ago. The patient also needs followup for an autoimmune hepatitis with at [facility]. She will also need followup with the urologist, Dr. Robles as an outpatient on the status of her chronic hydronephrosis that was seen on the CAT scan, it may be an anatomic finding which is chronic without any concerns for anything obvious. The patient is on intravenous antibiotics with intravenous meropenem for her beta-lactamase Escherichia coli pyelonephritis. The patient is on daily 3 of the 10 days of meropenem. We will continue intravenous meropenem and to probably modify every 12 hours dose for the next eight to ten days. This will allow us to send the patient home, and she could have it first today rather than having a peripherally inserted central catheter line put in for the intended duration for the next six days. The patient is aware of it and is agreeable to it. So we did request for a peripherally inserted central catheter line evaluation in a.m. A.m. labs have been requested, we will check with Infectious Disease again tomorrow before making a move as far as discharge plans are concerned. The patient, however, is clinically improved. We will discontinue the intravenous dose of today, but continue the antibiotics. I discussed my findings in detail with the patient, explained to her what our plans will be. Please make a note, this is a complex patient with multiple comorbid medical issues. Matthew De La Cruz MD
[2018-10-17] MEDS: Meropenem IV 1 gm in NS 1 GM/50 ML BAG IVPB SCH (05:50)
[2018-10-17 07:19] LABS: EOS # 0.1 (0.0-0.7); EOS % 1.8 % (1.5-5.0); HEMOGLOBIN 9.1 g/dL (12.0-16.0); LYMPH # 1.3 (1.2-3.4); LYMPH % 22.4 % (22.0-35.0); MEAN CELL VOLUME 82.9 fl (80.0-105.0); MEAN CORPUSCULAR HEMOGLOBIN 24.7 pg (25.0-35.0); MEAN CORPUSCULAR HGB CONC 29.8 g/dl (31.0-37.0); MONO # 0.3 (0.1-0.6); MONO % 4.4 % (1.0-6.0); PLATELET COUNT 176 10^3/uL (120.0-450.0); RBC 3.68 10^6/uL (3.5-6.1); RED CELL DISTRIBUTION WIDTH 16.7 % (11.5-14.5); WHITE BLOOD COUNT 5.7 10^3/uL (4.5-11.0)
[2018-10-17 08:05] LABS: ALB/GLOB RATIO 0.8 (1.1-1.8); ALBUMIN 2.7 g/dL (3.0-4.8); ALT/SGPT 32 U/L (7-56); AST/SGOT 57 U/L (14-36); BLOOD UREA NITROGEN 9 mg/dL (7-21); CALCIUM 8.4 mg/dL (8.4-10.5); GFR NON-AFRICAN AMERICAN > 60
[2018-10-17 08:44] VITALS: BP 150/66; PULSE 64; RESP 18; TEMP 99.5; O2SAT 97
--- NOTE | 2018-10-17 11:51 | PN ---
DATE: 10/17/2018 SUBJECTIVE: The patient is in bed in no acute distress, nontoxic. PHYSICAL EXAMINATION: VITAL SIGNS: Temperature is 98, blood pressure is 140/80, respiratory of 18. HEENT: Unremarkable. NECK: Supple. LUNGS: Have decreased breath sounds. HEART: Normal S1, S2. ABDOMEN: Soft. LABORATORY EXAMINATION: Reveals a white count of 5.7, hemoglobin of 9, BUN of 9, creatinine of 0.9. Urinalysis is noted. Microbiology is reviewed. ASSESSMENT AND PLAN: This is a 63-year-old female with autoimmune hepatitis, history of urinary bladder cancer status post radical cystectomy and ileoconduit admitted with; 1. Sepsis with extended-spectrum beta-lactamases Escherichia coli pyelonephritis. Today is day #4 of 10 days of meropenem. Review of orders reveals the patient's meropenem is active. David Marroquin MD
[2018-10-17] MEDS ORDERED: Meropenem IV 1 gm in NS 1 GM/50 ML BAG IVPB SCH (14:00)
== END 2018-10-17 20:24 | disposition home or self-care (01) | DRG 392 ==
LOC: ED 12:49 → ERH 16:24 → 3RSO 17:43
PROVIDERS: ADMIT Family Medicine; ATTEND Family Medicine
PROC: 0DJ08ZZ Inspection of Upper Intestinal Tract, Via Natural or Artificial Opening Endoscopic (ICD-10-PCS; principal; 2018-10-14 09:00)
DX: K29.70 Gastritis, unspecified, without bleeding (principal); N12 Tubulo-interstitial nephritis, not specified as acute or chronic; N13.30 Unspecified hydronephrosis; Z16.12 Extended spectrum beta lactamase (ESBL) resistance; B96.20 Unspecified Escherichia coli [E. coli] as the cause of diseases classified elsewhere; K80.20 Calculus of gallbladder without cholecystitis without obstruction; K43.2 Incisional hernia without obstruction or gangrene; K43.5 Parastomal hernia without obstruction or gangrene; K25.9 Gastric ulcer, unspecified as acute or chronic, without hemorrhage or perforation; K75.4 Autoimmune hepatitis; K74.69 Other cirrhosis of liver; D64.9 Anemia, unspecified; R16.1 Splenomegaly, not elsewhere classified; R63.4 Abnormal weight loss; Z85.51 Personal history of malignant neoplasm of bladder; Z93.2 Ileostomy status; Z88.1 Allergy status to other antibiotic agents; Z88.2 Allergy status to sulfonamides; Z88.5 Allergy status to narcotic agent; Z87.11 Personal history of peptic ulcer disease

== ENCOUNTER 2018-10-12 13:25 | Outpatient (CLI) | payer BC | END 2018-10-12 13:26 | disposition home or self-care (01) | LOC: OPLAB 13:25 | DX: D64.9 Anemia, unspecified (principal); E78.5 Hyperlipidemia, unspecified; E83.40 Disorders of magnesium metabolism, unspecified; N39.0 Urinary tract infection, site not specified; M81.0 Age-related osteoporosis without current pathological fracture ==

== ENCOUNTER 2018-10-22 19:01 | Emergency (ER) | payer BC | END 2018-10-23 03:45 | disposition home or self-care (01) | LOC: ED 10-23 03:45 ==

== ENCOUNTER 2018-11-28 07:26 | Inpatient (IN) | payer BC ==
[2018-11-24 09:23] VITALS: BMI 27.1
[2018-11-28] MEDS ORDERED: Bupivacaine 0.5% 50 ML IJ ONE (11:46)
[2018-11-28] MEDS ORDERED: Midazolam 2 MG/2 ML VIAL ONE (11:52)
[2018-11-28] MEDS ORDERED: Propofol 10 mg/ml Inj (20 ML) ONE (11:52)
[2018-11-28] MEDS ORDERED: Rocuronium 10 mg/ml (5 ml) ONE (11:55)
[2018-11-28] MEDS ORDERED: metroNIDAZOLE IV 500 mg/100 ml 500 MG/100 ML BAG ONE (12:11)
[2018-11-28] MEDS ORDERED: Bupivacaine Liposomal Inj 20 ml ONE (13:01)
[2018-11-28] MEDS ORDERED: Sodium Chloride 0.9% 0 ML IV ONE (14:10)
[2018-11-28] MEDS ORDERED: Neostigmine Methylsulfate 3mg/3ml Syringe IV ONE (14:15)
[2018-11-28] MEDS ORDERED: HYDROmorphone 0.5 mg/0.5 ml ISec IVP PRN (14:31)
[2018-11-28] MEDS ORDERED: Lactated Ringer's 1,000 ML IV SCH (14:45)
--- NOTE | 2018-11-28 14:53 | PCM.SURG1 ---
Surgeon's Initial Post Op Note - Surgeon's Notes Surgeon: Dr. Dubois [employer] Underwriter: Velia Godfrey, PGY-2 Type of Anesthesia: General Endo Anesthesia Administered By: Isaiah Pre-Operative Diagnosis: Parastomal hernia Operative Findings: Parastomal hernia, intra abdominal adhesions Post-Operative Diagnosis: Paraostomal hernia Operation Performed: Laparotomy, lysis of adhesions, primary repair of parastomal hernia with mesh reinforcement and partial explanation of previous mesh Specimen/Specimens Removed: Explanted mesh Estimated Blood Loss: EBL {In ML}: 5 Blood Products Given: N/A Drains Used: No Drains Post-Op Condition: Fair Date of Surgery/Procedure: 11/28/18 Time of Surgery/Procedure: 14:20
[2018-11-28] MEDS ORDERED: metroNIDAZOLE IV 500 mg/100 ml 500 MG/100 ML BAG IVPB SCH (15:00)
[2018-11-28] MEDS ORDERED: HYDROmorphone 0.5 mg/0.5 ml ISec IVP ONE (15:01)
[2018-11-28] MEDS ORDERED: ceFAZolin 1 gm in NS 1 GM/100 ML BAG IVPB SCH (15:15)
[2018-11-28] MEDS: HYDROmorphone 0.5 mg/0.5 ml ISec IVP PRN ×2 (17:07→19:55)
[2018-11-28] MEDS: ceFAZolin 1 gm in NS 1 GM/100 ML BAG IVPB SCH (17:47)
[2018-11-28] MEDS: metroNIDAZOLE IV 500 mg in 100 ML IVPB SCH (19:59)
[2018-11-29] MEDS: ceFAZolin 1 gm in NS 1 GM/100 ML BAG IVPB SCH ×4 (00:11→21:53)
[2018-11-29] MEDS: HYDROmorphone 0.5 mg/0.5 ml ISec IVP PRN ×3 (00:59→09:41)
[2018-11-29] MEDS: metroNIDAZOLE IV 500 mg in 100 ML IVPB SCH (01:19)
--- NOTE | 2018-11-29 06:39 | CP.PCM.CON ---
<Boston Carroll - Last Filed: 11/29/18 15:39> History of Present Illness - History of Present Illness History of Present Illness: Boston Carroll PGY2 Heme/Onc Consult Note for Dr. Dorothy Longo Karen Reyes is a 63F w/ hx of autoimmune hepatitis, bladder CA s/p radical cystectomy w. ileal conduit who presents for hernia repair. Patient had procedure done yesterday, states she if feeling well, has been eating okay without issues and has some pain in the are of procedure. Denies chest pain, fever, chills, nausea, vomiting, or any other complaints at this time. PMH: See above PSH: appendectomy, radical cystectomy w. ileal conduit, parastomal hernia repair Social: No ETOH/tobacco/drugs Fhx: Non-contributory Endo Hx ROS: 12point ROS conducted neg other than above Review of Systems - Review of Systems All systems: reviewed and no additional remarkable complaints except Past Patient History - Past Social History Smoking Status: Never Smoked - CARDIAC Hx Pacemaker: No - PULMONARY Hx Respiratory Disorders: No - NEUROLOGICAL Hx Neurological Disorder: No - HEENT Hx HEENT Problems: No - RENAL Hx Chronic Kidney Disease: Yes (ADENOCARCINOMA OF THE BLADDER) - ENDOCRINE/METABOLIC Hx Endocrine Disorders: No - HEMATOLOGICAL/ONCOLOGICAL Hx Blood Disorders: Yes (autoimmune Hepatitis) - INTEGUMENTARY Hx Dermatological Problems: No - MUSCULOSKELETAL/RHEUMATOLOGICAL Hx Musculoskeletal Disorders: Yes Hx Falls: No - GASTROINTESTINAL Hx Gastrointestinal Disorders: Yes (LOAP INCISIONAL HERNIA WITH BX OF OVER 7-27-15,LIVER CIRHOSIS) - GENITOURINARY/GYNECOLOGICAL Hx Genitourinary Disorders: Yes (ILEAL CONDUIT,HYSTERECTOMY 1998) - PSYCHIATRIC Hx Emotional Abuse: No Hx Physical Abuse: No - SURGICAL HISTORY Hx Surgeries: Yes - ANESTHESIA Hx Anesthesia Reactions: Yes (NAUSEA USUALLY RECEIVES MED) Hx Malignant Hyperthermia: No Meds Allergies/Adverse Reactions: Allergies Allergy/AdvReac Type Severity Reaction Status Date / Time levofloxacin [From Levaquin] Allergy Severe LOW WBC Verified 11/24/18 09:23 COUNT morphine Allergy Severe RESTLESSNES Verified 11/24/18 09:23 S,PALPITATI ONS Sulfa (Sulfonamide Allergy Severe RASH Verified 11/24/18 09:23 Antibiotics) ketorolac [From Toradol] AdvReac Intermediate feels Verified 11/24/18 09:23 jittery - Medications Medications: Current Medications Amlodipine Besylate (Norvasc) 5 mg PO DAILY [facility] Enoxaparin Sodium (Lovenox) 30 mg SC DAILY [facility]; Protocol Hydromorphone HCl (Dilaudid) 0.5 mg IVP Q3H PRN PRN Reason: Pain, severe (8-10) Last Admin: 11/29/18 06:16 Dose: 0.5 mg Ondansetron HCl (Zofran Inj) 4 mg IVP Q6 PRN PRN Reason: Nausea/Vomiting Last Admin: 11/29/18 06:16 Dose: 4 mg Physical Exam - Constitutional Appears: Non-toxic, No Acute Distress - Head Exam Head Exam: ATRAUMATIC, NORMAL INSPECTION, NORMOCEPHALIC - Eye Exam Eye Exam: EOMI, Normal appearance, PERRL - ENT Exam ENT Exam: Mucous Membranes Moist - Respiratory Exam Respiratory Exam: Clear to Auscultation Bilateral, NORMAL BREATHING PATTERN - Cardiovascular Exam Cardiovascular Exam: +S1, +S2 - GI/Abdominal Exam GI & Abdominal Exam: Soft, Tenderness Additional comments: hernia drain in place s/p surgery Results - Vital Signs Recent Vital Signs: Last Vital Signs Temp 98.4 F 11/28/18 17:03 Pulse 72 11/28/18 17:03 Resp 20 11/28/18 18:15 BP 131/75 11/28/18 17:03 Pulse Ox 93 L 11/28/18 17:03 - Labs Result Diagrams: 11/29/18 06:20 11/29/18 06:20 Assessment & Plan - Assessment and Plan (Free Text) Plan: 63F w/bladder CA s/p parastomal hernia repair with recurrent parastomal hernia s/p primary parastomal hernia repair. -Hgb is 10.1 -monitor H/H -Pain control -further recs per surgery team <Matthew De La Cruz P - Last Filed: 12/04/18 18:01> Results - Vital Signs Recent Vital Signs: Last Vital Signs Temp 98.6 F 12/02/18 06:00 Pulse 75 12/02/18 06:00 Resp 17 12/02/18 06:00 BP 159/80 H 12/02/18 06:00 Pulse Ox 95 12/02/18 06:00 - Labs Result Diagrams: 12/02/18 07:00 12/02/18 07:00 Attending/Attestation - Attestation I have personally seen and examined this patient.: Yes I have fully participated in the care of the patient.: Yes I have reviewed all pertinent clinical information: Yes
[2018-11-29 07:15] LABS: BASO # 0.01 K/mm3 (0.0-2.0); BASO % 0.1 % (0.0-3.0); EOS % 0.3 % (1.5-5.0); HEMOGLOBIN 10.1 g/dL (12.0-16.0); LYMPH # 0.8 (1.2-3.4); LYMPH % 10.2 % (22.0-35.0); MEAN CELL VOLUME 83.1 fl (80.0-105.0); MEAN CORPUSCULAR HEMOGLOBIN 25.5 pg (25.0-35.0); MEAN CORPUSCULAR HGB CONC 30.7 g/dl (31.0-37.0); MEAN PLATELET VOLUME 11.6 fl (7.0-11.0); MONO # 0.5 (0.1-0.6); MONO % 6.4 % (1.0-6.0); RBC 3.96 10^6/uL (3.5-6.1); RED CELL DISTRIBUTION WIDTH 16.9 % (11.5-14.5); WHITE BLOOD COUNT 7.8 10^3/uL (4.5-11.0)
[2018-11-29 07:22] LABS: CALCIUM 8.8 mg/dL (8.4-10.5)
--- NOTE | 2018-11-29 08:44 | CP.PCM.PN ---
Subjective - Date & Time of Evaluation Date of Evaluation: 11/29/18 Time of Evaluation: 07:00 - Subjective Subjective: General surgery progress note for Dr. Soler-Velia Godfrey, PGY-2 Pt seen/examined at bedside with surgical team Pt reports abdominal pain overnight requiring pain medications. Tolerating full liquid diet. Denies N & V, F & C, SOB or other complaints. Ileal conduit functioning. Objective - Vital Signs/Intake and Output Vital Signs (last 24 hours): Temp Pulse Resp BP Pulse Ox 98.6 F 75 20 134/69 93 L 11/29/18 08:28 11/29/18 08:28 11/29/18 08:28 11/29/18 08:28 11/29/18 08:28 - Medications Medications: Current Medications Amlodipine Besylate (Norvasc) 5 mg PO DAILY [facility] Docusate Sodium (Colace) 100 mg PO BID [facility] Enoxaparin Sodium (Lovenox) 30 mg SC DAILY [facility]; Protocol Hydromorphone HCl (Dilaudid) 0.5 mg IVP Q3H PRN PRN Reason: Pain, severe (8-10) Last Admin: 11/29/18 06:16 Dose: 0.5 mg Ondansetron HCl (Zofran Inj) 4 mg IVP Q6 PRN PRN Reason: Nausea/Vomiting Last Admin: 11/29/18 06:16 Dose: 4 mg - Labs Labs: 11/29/18 06:20 11/29/18 06:20 - Constitutional Appears: Non-toxic, No Acute Distress - Head Exam Head Exam: ATRAUMATIC, NORMAL INSPECTION, NORMOCEPHALIC - Eye Exam Eye Exam: EOMI, Normal appearance - ENT Exam ENT Exam: Mucous Membranes Moist, Normal Exam - Neck Exam Neck Exam: Full ROM - Respiratory Exam Respiratory Exam: NORMAL BREATHING PATTERN - Cardiovascular Exam Cardiovascular Exam: REGULAR RHYTHM, +S1, +S2 - GI/Abdominal Exam GI & Abdominal Exam: Soft, Tenderness (mild, along incision site. Midline dressing in place over incision- clean/dry/intact. Ileal conduit with urine output to bag). absent: Distended, Firm, Guarding, Rigid, Hernia, Rebound - Extremities Exam Extremities Exam: Normal Inspection - Neurological Exam Neurological Exam: Alert, Awake, CN II-XII Intact, Oriented x3 - Psychiatric Exam Psychiatric exam: Normal Affect, Normal Mood - Skin Skin Exam: Dry, Intact, Normal Color, Warm Assessment and Plan - Assessment and Plan (Free Text) Assessment: 63F w/bladder CA s/p parastomal hernia repair with recurrent parastomal hernia POD#1 s/p laparotomy with lysis of adhesions, primary parastomal hernia repair with mesh reinforcement, doing well overnight. Plan: Pain control Advance diet to regular Started on home bowel regimen OOBTC Ambulate TEDS SCDs Encourage IS use DVT ppx with Lovenox today Continue Abx x [address] Adryan Godfrey, PGY-2
--- NOTE | 2018-11-29 08:47 | OP ---
PROCEDURE DATE: 11/28/2018 SURGEON: Porfirio Cornelius MD FINISHING FRAME RUNNER: Velia Godfrey, PGY-2 ANESTHESIOLOGIST: Michael Norton DO ANESTHESIA: General endotracheal. PREOPERATIVE DIAGNOSIS: Parastomal hernia. POSTOPERATIVE DIAGNOSIS: Parastomal hernia. FINDINGS: Parastomal hernia. SPECIMEN: Explanted mesh. BLOOD LOSS: 5 mL. DRAINS: None. COMPLICATIONS: None. DESCRIPTION OF PROCEDURE: The patient is a 63-year-old female with past medical history significant for bladder cancer status post ileal conduit with recurrent parastomal hernias. The patient was evaluated in the office for abdominal discomfort due to recurrent parastomal hernia. It was determined that the patient would benefit from hernia repair. All risks and benefits were discussed with the patient prior to surgical intervention. The patient was consented for a laparotomy with hernia repair with possible mesh. The patient was brought into the operating room and laid supine upon the operating table. General endotracheal anesthesia was administered and the patient was intubated. The patient was prepped and draped in the usual sterile manner. A time-out was performed identifying the patient and procedure. A midline incision with previous scar excision was performed. Dissection was carried down to the fascia. Fascia was gently incised and the intra-abdominal cavity was inspected. Multiple intra-abdominal adhesions were discovered and sharply dissected. Total adhesion of lysis required to expose parastomal hernias was approximately 65 minutes. The parastomal hernias were reduced and the defects were closed primarily with a 2-0 Prolene suture. The fascial defects were reinforced with mesh, which was secured on 3 sides with 2-0 Prolene in a simple running fashion. The midline fascia was then closed with 2-0 Prolene suture with good approximation. Liposomal bupivacaine was infiltrated along the midline incision. Deep dermal sutures were used to approximate the skin. The skin was closed using stacey. Wound was dressed with Aquacel. The ileal conduit was then covered with a stomal appliance. The urine output during the case was noted to be approximately 200 mL of clear yellow urine. All sponges, sutures and instruments were declared to be correct at the end of the case. The patient was then extubated and taken to the postanesthesia care unit in stable condition. Velia Godfrey DO Porfirio Cornelius MD [facility] # [id number] [facility]ITAL[facility]ma
[2018-11-29] MEDS: metroNIDAZOLE IV 500 mg/100 ml 500 MG/100 ML BAG IVPB SCH ×3 (09:44→23:45)
[2018-11-29] MEDS: Enoxaparin 30 mg Syringe SC SCH (09:45)
[2018-11-29] MEDS: HYDROmorphone 1 mg/ml ISec IVP PRN ×4 (12:39→22:52)
[2018-11-30] MEDS: HYDROmorphone 1 mg/ml ISec IVP PRN ×5 (03:53→20:29)
[2018-11-30] MEDS: ceFAZolin 1 gm in NS 1 GM/100 ML BAG IVPB SCH ×3 (05:55→21:29)
[2018-11-30] MEDS: metroNIDAZOLE IV 500 mg/100 ml 500 MG/100 ML BAG IVPB SCH ×3 (07:04→21:29)
[2018-11-30] MEDS: Enoxaparin 30 mg Syringe SC SCH (09:31)
[2018-11-30] MEDS ORDERED: Magnesium Hydroxide Susp 30 ml UD PO ONE (10:02)
--- NOTE | 2018-11-30 13:47 | CP.PCM.PN ---
Subjective - Date & Time of Evaluation Date of Evaluation: 11/30/18 Time of Evaluation: 13:42 - Subjective Subjective: Surgery Progress Note for Dr. Cornelius 63F seen and evaluated at bedside this morning. No acute events overnight. No BM yet, passing gas. Patient ambulating, tolerating diet. Denies f/c, n/v/d, SOB, CP, or urinary symptoms. Objective - Vital Signs/Intake and Output Vital Signs (last 24 hours): Temp Pulse Resp BP Pulse Ox 99.0 F 109 H 20 148/79 91 L 11/30/18 06:00 11/30/18 09:31 11/30/18 06:00 11/30/18 09:31 11/30/18 06:00 Intake and Output: 11/30/18 11/30/18 06:59 18:59 Intake Total 2100 Output Total 850 Balance 1250 - Medications Medications: Current Medications Amlodipine Besylate (Norvasc) 5 mg PO DAILY [facility] Last Admin: 11/30/18 09:31 Dose: 5 mg Docusate Sodium (Colace) 100 mg PO BID [facility] Last Admin: 11/30/18 09:30 Dose: 100 mg Enoxaparin Sodium (Lovenox) 30 mg SC DAILY [facility]; Protocol Last Admin: 11/30/18 09:31 Dose: 30 mg Hydromorphone HCl (Dilaudid) 1 mg IVP Q3H PRN PRN Reason: Pain, severe (8-10) Last Admin: 11/30/18 09:31 Dose: 1 mg Cefazolin Sodium (Ancef 1gm In Ns) 1 gm in 100 mls @ 100 mls/hr IVPB Q8 [facility]; Protocol Stop: 12/05/18 09:01 Last Admin: 11/30/18 05:55 Dose: 100 mls/hr Metronidazole (Flagyl) 500 mg in 100 mls @ 100 mls/hr IVPB Q8 [facility]; Protocol Stop: 12/05/18 09:01 Last Admin: 11/30/18 07:04 Dose: 100 mls/hr Ondansetron HCl (Zofran Inj) 4 mg IVP Q6 PRN PRN Reason: Nausea/Vomiting Last Admin: 11/29/18 19:04 Dose: 4 mg Tramadol HCl (Ultram) 50 mg PO TID PRN PRN Reason: Pain, severe (8-10) - Labs Labs: 11/29/18 06:20 11/29/18 06:20 - Constitutional Appears: Non-toxic, No Acute Distress - Head Exam Head Exam: ATRAUMATIC, NORMAL INSPECTION, NORMOCEPHALIC - Eye Exam Eye Exam: EOMI - ENT Exam ENT Exam: Mucous Membranes Moist - Respiratory Exam Respiratory Exam: NORMAL BREATHING PATTERN. absent: Wheezes, Respiratory Distress - Cardiovascular Exam Cardiovascular Exam: REGULAR RHYTHM - GI/Abdominal Exam GI & Abdominal Exam: Soft, Tenderness, Normal Bowel Sounds. absent: Distended, Guarding, Rigid, Rebound - Extremities Exam Extremities Exam: Normal Inspection - Neurological Exam Neurological Exam: Alert, Awake, Oriented x3 - Psychiatric Exam Psychiatric exam: Normal Affect, Normal Mood - Skin Skin Exam: Dry, Intact, Normal Color, Warm Assessment and Plan - Assessment and Plan (Free Text) Assessment: 63F w/ parastomal hernia s/p laparotomy w/ parastomal primary hernia repair and mesh reinforcement POD2 Plan: Milk of Magnesia Suppository if patient has no BM still Tramadol script for pain Keflex 500mg Q8H x 7 days Continue ambulation and IS use Monitor return of bowel function DC planning D/w Dr. Adryan Chapa PGY1
[2018-12-01] MEDS: HYDROmorphone 1 mg/ml ISec IVP PRN ×4 (02:51→20:33)
--- NOTE | 2018-12-01 05:06 | PN ---
DATE: 11/30/2018 HEMATOLOGY/ONCOLOGY PROGRESS NOTE LOCATION: The patient is in room 369, bed 2. PROBLEM: This is a 63-year-old female who was admitted to the hospital recently for incarcerated hernia, repair of the hernia along with replacement of the abdominal wall mesh along with lysis of adhesions who is recovering post surgery. The patient has a background history of immune hepatitis, cirrhosis of liver, borderline thrombocytopenia, grade 1 esophageal varices, also has a history of carcinoma of the urinary bladder, status post radical resection ileal conduit. The patient is seen in bed this morning. She had no acute events overnight. Still has not had a bowel movement but is passing gas. The patient is still in significant amount of pain. The patient is trying to . Taking liquids by mouth. Denies any history of nausea or vomiting. No urinary complaints at this time, ileal conduit is working with clear urine in the bag. PHYSICAL EXAMINATION: VITAL SIGNS: Objectively, vital signs are stable. T-max is 99, pulse is 109, respirations 20, blood pressure 148/79, and pulse is 91. GENERAL: The patient is in no significant distress though she still tells me the pain score is at least 6/10. HEENT: Head is normocephalic, atraumatic. Conjunctivae pale. Sclerae anicteric. Pupils are equally reactive to light and accommodation. Examination of the oropharynx reveals no oropharyngeal lesions. Tongue is moist. NECK: Supple. There is no adenopathy. LUNGS: Clear to percussion and auscultation. CARDIOVASCULAR SYSTEM: Reveals S1 and S2 to be normal. No gallop or murmur is heard. ABDOMEN: Soft. Bowel sounds are present. There is no distention. Scar of longitudinal surgery is noted with dressing in place. Anticipated tenderness is noted. EXTREMITIES: Reveals no cyanosis, clubbing, or edema. NEUROLOGIC: Higher functions are normal. No focal deficits are noted. SKIN: Dry. No skin lesions are noted. MEDICATIONS: The patient's medications are reviewed. She is on amlodipine 5 mg daily, Colace 100 b.i.d., Lovenox 30 mg subcu daily, Dilaudid 1 mg IV every 3 hours p.r.n., Ancef 1 g IV every 8 hours, metronidazole 500 mg every 8 hours, Zofran 4 mg IV every 6 hours p.r.n., tramadol 50 mg p.o. t.i.d. p.r.n. LABORATORY DATA: The patient's white count is 7.8, hemoglobin 10.9, hematocrit 32.9, platelet count 174,000. Electrolytes are unremarkable. ASSESSMENT, NOTES AND PLAN: The patient is improving. Status post past parastomal hernia repair with repair of the mesh and mesh reinforcement along the lysis of adhesions. The patient's hemoglobin and hematocrit is stable with stable platelet count as well. The patient has been given a dose of milk of magnesia, and she will also get suppository. The patient will continue antibiotics p.o. once she leaves the hospital. Continue ambulation. Hopefully, if she starts moving her bowels, the patient will be discharged as an outpatient for further followup as an outpatient. We will discuss her findings with Dr. Cornelius, as well. Please make a note, this is a complex patient with multiple comorbid medical issues. Time spent with the patient in excess of 35 minutes. Matthew De La Cruz MD
[2018-12-01] MEDS: ceFAZolin 1 gm in NS 1 GM/100 ML BAG IVPB SCH ×3 (06:04→21:05)
[2018-12-01] MEDS: metroNIDAZOLE IV 500 mg/100 ml 500 MG/100 ML BAG IVPB SCH ×3 (06:04→22:04)
--- NOTE | 2018-12-01 06:43 | CP.PCM.PN ---
<Boston Carroll - Last Filed: 12/01/18 14:05> Subjective - Date & Time of Evaluation Date of Evaluation: 12/01/18 Time of Evaluation: 06:00 - Subjective Subjective: Boston Carroll PGY2 Heme/Onc Progress Note for Dr. De La Cruz Patient seen and evaluated bedside in AM. No acute issues overnight. Patient says she is doing well, still no flatus or bowel movement. No acute issues or complaints at this time. Objective - Vital Signs/Intake and Output Vital Signs (last 24 hours): Temp Pulse Resp BP Pulse Ox 99.0 F 104 H 19 149/83 97 11/30/18 06:00 11/30/18 16:25 11/30/18 16:25 11/30/18 16:25 11/30/18 16:25 - Medications Medications: Current Medications Amlodipine Besylate (Norvasc) 5 mg PO DAILY [facility] Last Admin: 11/30/18 09:31 Dose: 5 mg Docusate Sodium (Colace) 100 mg PO BID [facility] Last Admin: 11/30/18 17:38 Dose: 100 mg Enoxaparin Sodium (Lovenox) 30 mg SC DAILY [facility]; Protocol Last Admin: 11/30/18 09:31 Dose: 30 mg Hydromorphone HCl (Dilaudid) 1 mg IVP Q3H PRN PRN Reason: Pain, severe (8-10) Last Admin: 12/01/18 02:51 Dose: 1 mg Cefazolin Sodium (Ancef 1gm In Ns) 1 gm in 100 mls @ 100 mls/hr IVPB Q8 [facility]; Protocol Stop: 12/05/18 09:01 Last Admin: 12/01/18 06:04 Dose: 100 mls/hr Metronidazole (Flagyl) 500 mg in 100 mls @ 100 mls/hr IVPB Q8 [facility]; Protocol Stop: 12/05/18 09:01 Last Admin: 12/01/18 06:04 Dose: 100 mls/hr Ondansetron HCl (Zofran Inj) 4 mg IVP Q6 PRN PRN Reason: Nausea/Vomiting Last Admin: 11/29/18 19:04 Dose: 4 mg Tramadol HCl (Ultram) 50 mg PO TID PRN PRN Reason: Pain, severe (8-10) - Labs Labs: 11/29/18 06:20 11/29/18 06:20 - Constitutional Appears: Non-toxic, No Acute Distress - Head Exam Head Exam: ATRAUMATIC, NORMAL INSPECTION, NORMOCEPHALIC - Eye Exam Eye Exam: Normal appearance - Cardiovascular Exam Cardiovascular Exam: +S1, +S2 Assessment and Plan - Assessment and Plan (Free Text) Plan: 63F w/bladder CA s/p parastomal hernia repair with recurrent parastomal hernia s/p primary parastomal hernia repair. -Hgb is 10.0 -platelets 127 -monitor H/H -Pain control -further recs per surgery team <Matthew De La Cruz P - Last Filed: 12/04/18 17:50> Objective - Vital Signs/Intake and Output Vital Signs (last 24 hours): Temp Pulse Resp BP Pulse Ox 98.6 F 75 17 159/80 H 95 12/02/18 06:00 12/02/18 06:00 12/02/18 06:00 12/02/18 06:00 12/02/18 06:00 - Labs Labs: 12/02/18 07:00 12/02/18 07:00 Attending/Attestation - Attestation I have personally seen and examined this patient.: Yes I have fully participated in the care of the patient.: Yes I have reviewed all pertinent clinical information, including history, physical exam and plan: Yes
--- NOTE | 2018-12-01 09:06 | CP.PCM.PN ---
Subjective - Date & Time of Evaluation Date of Evaluation: 12/01/18 Time of Evaluation: 07:30 - Subjective Subjective: General surgery progress note for Dr. Soler-Velia Godfrey, PGY-2 Pt seen/examined at bedside with surgical team Pt reports some nausea after having flagyl given this AM. Tolerated diet last night. Denies BM, flatus, nausea, vomiting fevers, chills. Is ambulating, voiding via ileal conduit. Objective - Vital Signs/Intake and Output Vital Signs (last 24 hours): Temp Pulse Resp BP Pulse Ox 99.0 F 104 H 19 149/83 97 11/30/18 06:00 11/30/18 16:25 11/30/18 16:25 11/30/18 16:25 11/30/18 16:25 - Medications Medications: Current Medications Amlodipine Besylate (Norvasc) 5 mg PO DAILY [facility] Last Admin: 11/30/18 09:31 Dose: 5 mg Docusate Sodium (Colace) 100 mg PO BID [facility] Last Admin: 11/30/18 17:38 Dose: 100 mg Enoxaparin Sodium (Lovenox) 30 mg SC DAILY [facility]; Protocol Last Admin: 11/30/18 09:31 Dose: 30 mg Hydromorphone HCl (Dilaudid) 1 mg IVP Q3H PRN PRN Reason: Pain, severe (8-10) Last Admin: 12/01/18 07:46 Dose: 1 mg Cefazolin Sodium (Ancef 1gm In Ns) 1 gm in 100 mls @ 100 mls/hr IVPB Q8 [facility]; Protocol Stop: 12/05/18 09:01 Last Admin: 12/01/18 06:04 Dose: 100 mls/hr Metronidazole (Flagyl) 500 mg in 100 mls @ 100 mls/hr IVPB Q8 [facility]; Protocol Stop: 12/05/18 09:01 Last Admin: 12/01/18 06:04 Dose: 100 mls/hr Ondansetron HCl (Zofran Inj) 4 mg IVP Q6 PRN PRN Reason: Nausea/Vomiting Last Admin: 11/29/18 19:04 Dose: 4 mg Tramadol HCl (Ultram) 50 mg PO TID PRN PRN Reason: Pain, severe (8-10) - Labs Labs: 11/29/18 06:20 11/29/18 06:20 - Constitutional Appears: Non-toxic, No Acute Distress - Head Exam Head Exam: ATRAUMATIC, NORMAL INSPECTION, NORMOCEPHALIC - Eye Exam Eye Exam: EOMI, Normal appearance - ENT Exam ENT Exam: Mucous Membranes Moist, Normal Exam - Neck Exam Neck Exam: Full ROM - Respiratory Exam Respiratory Exam: NORMAL BREATHING PATTERN - Cardiovascular Exam Cardiovascular Exam: REGULAR RHYTHM, +S1, +S2 - GI/Abdominal Exam GI & Abdominal Exam: Soft, Tenderness (mild, along incision site). absent: Distended, Firm, Guarding, Rigid, Hernia Additional comments: Midline dressing in place with scant sanguinous strike through at midline - Extremities Exam Extremities Exam: Normal Inspection - Neurological Exam Neurological Exam: Alert, Awake, CN II-XII Intact, Oriented x3 - Psychiatric Exam Psychiatric exam: Normal Affect, Normal Mood - Skin Skin Exam: Dry, Intact, Normal Color, Warm Assessment and Plan - Assessment and Plan (Free Text) Assessment: 63F w/bladder CA s/p parastomal hernia repair with recurrent parastomal hernia POD#2 s/p laparotomy with lysis of adhesions, primary parastomal hernia repair with mesh reinforcement, no bowel function yet Plan: Pain control Dulcolax once Monitor for bowel function Reglan once for nausea OOBTC Ambulate TEDS/SCDs Encourage IS use DVT ppx - Lovenox Continue Abx x [address] Adryan Godfrey, PGY-2
[2018-12-01] MEDS: Enoxaparin 30 mg Syringe SC SCH (09:48)
[2018-12-01 10:26] LABS: EOS # 0.1 (0.0-0.7); EOS % 2.2 % (1.5-5.0); LYMPH # 0.6 (1.2-3.4); LYMPH % 10.7 % (22.0-35.0); MEAN CORPUSCULAR HEMOGLOBIN 25.4 pg (25.0-35.0); MEAN CORPUSCULAR HGB CONC 30.7 g/dl (31.0-37.0); MONO # 0.3 (0.1-0.6); MONO % 4.9 % (1.0-6.0); PLATELET COUNT 127 10^3/uL (120.0-450.0); RBC 3.93 10^6/uL (3.5-6.1); RED CELL DISTRIBUTION WIDTH 16.6 % (11.5-14.5); WHITE BLOOD COUNT 5.9 10^3/uL (4.5-11.0)
[2018-12-01 10:38] LABS: ALB/GLOB RATIO 0.8 (1.1-1.8); ALBUMIN 3.2 g/dL (3.0-4.8); AST/SGOT 18 U/L (14-36); BLOOD UREA NITROGEN 13 mg/dL (7-21); CALCIUM 8.4 mg/dL (8.4-10.5); GFR NON-AFRICAN AMERICAN 56
[2018-12-01 11:01] LABS: ALT/SGPT < 6 U/L (7-56)
[2018-12-01 17:35] VITALS: O2SAT 95
[2018-12-02] MEDS: HYDROmorphone 1 mg/ml ISec IVP PRN ×2 (00:53→11:04)
[2018-12-02] MEDS: ceFAZolin 1 gm in NS 1 GM/100 ML BAG IVPB SCH (05:01)
[2018-12-02] MEDS: metroNIDAZOLE IV 500 mg/100 ml 500 MG/100 ML BAG IVPB SCH (06:13)
[2018-12-02 07:39] LABS: EOS # 0.2 (0.0-0.7); EOS % 3.7 % (1.5-5.0); HEMOGLOBIN 10.1 g/dL (12.0-16.0); LYMPH # 0.6 (1.2-3.4); MEAN CELL VOLUME 82.2 fl (80.0-105.0); MEAN CORPUSCULAR HEMOGLOBIN 25.6 pg (25.0-35.0); MEAN CORPUSCULAR HGB CONC 31.2 g/dl (31.0-37.0); MEAN PLATELET VOLUME 11.7 fl (7.0-11.0); MONO # 0.3 (0.1-0.6); MONO % 6.1 % (1.0-6.0); RBC 3.94 10^6/uL (3.5-6.1); RED CELL DISTRIBUTION WIDTH 16.4 % (11.5-14.5); WHITE BLOOD COUNT 5.1 10^3/uL (4.5-11.0)
--- NOTE | 2018-12-02 07:45 | CP.PCM.DIS ---
Provider - Provider Date of Admission: 11/28/18 14:38 Attending physician: Porfirio Cornelius MD Primary care physician: Matthew De La Cruz MD Consults: Oncology- Dr. De La Cruz Time Spent in preparation of Discharge (in minutes): 35 Diagnosis - Discharge Diagnosis (1) Recurrent hernia Status: Acute (2) Parastomal hernia of ileal conduit Status: Acute Hospital Course - Lab Results Lab Results: Most Recent Lab Values WBC 5.1 10^3/uL (4.5-11.0) 12/02/18 07:00 RBC 3.94 10^6/uL (3.5-6.1) 12/02/18 07:00 Hgb 10.1 g/dL (12.0-16.0) L 12/02/18 07:00 Hct 32.4 % (36.0-48.0) L 12/02/18 07:00 MCV 82.2 fl (80.0-105.0) 12/02/18 07:00 MCH 25.6 pg (25.0-35.0) 12/02/18 07:00 MCHC 31.2 g/dl (31.0-37.0) 12/02/18 07:00 RDW 16.4 % (11.5-14.5) H 12/02/18 07:00 Plt Count 147 10^3/uL (120.0-450.0) 12/02/18 07:00 MPV 11.7 fl (7.0-11.0) H 12/02/18 07:00 Neut % (Auto) 79.2 % (50.0-68.0) H 12/02/18 07:00 Lymph % (Auto) 11.0 % (22.0-35.0) L 12/02/18 07:00 Crisp % (Auto) 6.1 % (1.0-6.0) H 12/02/18 07:00 Eos % (Auto) 3.7 % (1.5-5.0) 12/02/18 07:00 Baso % (Auto) 0.0 % (0.0-3.0) 12/02/18 07:00 Lymph # (Auto) 0.6 (1.2-3.4) L 12/02/18 07:00 Crisp # (Auto) 0.3 (0.1-0.6) 12/02/18 07:00 Eos # (Auto) 0.2 (0.0-0.7) 12/02/18 07:00 Baso # (Auto) 0.00 K/mm3 (0.0-2.0) 12/02/18 07:00 Absolute Neuts (auto) 4.01 (1.4-6.5) 12/02/18 07:00 Sodium 140 mmol/L (132-148) 12/01/18 10:05 Potassium 3.7 mmol/L (3.6-5.0) 12/01/18 10:05 Chloride 103 mmol/L (98-107) 12/01/18 10:05 Carbon Dioxide 27 mmol/L (21-33) 12/01/18 10:05 Anion Gap 13 (10-20) 12/01/18 10:05 BUN 13 mg/dL (7-21) 12/01/18 10:05 Creatinine 1.0 mg/dl (0.7-1.2) 12/01/18 10:05 Est GFR ( Amer) > 60 12/01/18 10:05 Est GFR (Non-Af Amer) 56 12/01/18 10:05 Random Glucose 117 mg/dL (70-110) H 12/01/18 10:05 Calcium 8.4 mg/dL (8.4-10.5) 12/01/18 10:05 Total Bilirubin 0.3 mg/dL (0.2-1.3) 12/01/18 10:05 AST 18 U/L (14-36) 12/01/18 10:05 ALT < 6 U/L (7-56) L 12/01/18 10:05 Alkaline Phosphatase 82 U/L (38-126) 12/01/18 10:05 Total Protein 7.0 g/dL (5.8-8.3) 12/01/18 10:05 Albumin 3.2 g/dL (3.0-4.8) 12/01/18 10:05 Globulin 3.8 gm/dL 12/01/18 10:05 Albumin/Globulin Ratio 0.8 (1.1-1.8) L 12/01/18 10:05 - Hospital Course Hospital Course: 63F w/PMH sig for bladder CA s/p radial cystectomy and ileal conduit admitted to hospital after elective repair of recurrent parastomal hernia. Patient taken to OR for laparotomy with primary repair of parastomal hernia with mesh re- inforcement with lysis of adhesions. Pt tolerated procedure well. Patient admitted to hospital after procedure and monitored for diet tolerance, bowel function and pain control after surgery. Pt with pain well controlled on hospital day 4, tolerating diet, having bowel function, voiding, stable and ready for d/c home. Diagnoses: recurrent parastomal hernia s/p laparotomy with primary parastomal hernia repair and re-inforcement with mesh PMH: autoimmune hepatitis, bladder CA PSH: radical cystectomy, ileal conduit, parastomal hernia repair Discharge Exam - Head Exam Head Exam: ATRAUMATIC, NORMAL INSPECTION, NORMOCEPHALIC - Eye Exam Eye Exam: EOMI, Normal appearance - ENT Exam ENT Exam: Mucous Membranes Moist, Normal Exam - Neck Exam Neck exam: Full Rom - Respiratory Exam Respiratory Exam: NORMAL BREATHING PATTERN, UNREMARKABLE - Cardiovascular Exam Cardiovascular Exam: REGULAR RHYTHM - GI/Abdominal Exam GI & Abdominal Exam: Soft, Tenderness (mild, over midline incision with stacey place). absent: Distended, Firm, Guarding, Hernia Additional comments: Ileal conduit with clear urine output to stoma bag - Extremities Exam Extremities exam: normal inspection - Neurological Exam Neurological exam: Alert, CN II-XII Intact, Oriented x3 - Psychiatric Exam Psychiatric exam: Normal Affect, Normal Mood - Skin Skin Exam: Dry, Intact, Normal Color, Warm Discharge Plan - Discharge Medications Prescriptions: Cephalexin [Keflex] 500 mg PO Q8H #21 capsule - Follow Up Plan Condition: STABLE Disposition: HOME/ ROUTINE Instructions: Hernia Repair (DC), Exploratory Laparotomy (DC) Additional Instructions: No heavy lifting for 4-6 weeks Continue bowel regimen at home, avoid constipation No sitting in water- no swimming or sitting in hot water Ok to shower, washing gently with soap and water Ok to resume normal diet Ok to resume activity- do not engage in weight lifting or heavy lifting Please follow up with Dr. Cornelius in 1-2 weeks after discharge Apply iodine impregnated swabs to staple site daily. If you notice any redness, swelling, increasing pain, purulent drainage, fever, chills these are signs and symptoms of infection. Please contact your doctor and come to the emergency room. Referrals: Matthew De La Cruz MD [Primary Care Provider] - Porfirio Cornelius MD [Staff Provider] - Clinical Quality Measures - CQM - Stroke Contranindication/Reason for not providing: Other (Not indicated) If Other selected, reason for not providing: Not medically indicated at this time Anticoagulation Prescribed for Atrial Flutter, Atrial Fibrillation and History of:: Not Applicable Contraindication/Reason for not providing: Other If Other selected, reason for not providing: Not indicated - CQM - VTE Did patient receive overlap therapy during hosptialization?: No Surgical Overlap Therapy Reason during Hospitalization: Not indicated Is patient being discharged on overlap therapy?: No Medical Reason for discharge Overlap Therapy: No (Not indicated) - CQM - Heart Failure Will be discharged to: Home Follow Up Date (must be within 7 days from discharge): 12/09/18
[2018-12-02 08:04] LABS: ALB/GLOB RATIO 0.9 (1.1-1.8); ALBUMIN 3.1 g/dL (3.0-4.8); AST/SGOT 16 U/L (14-36); BLOOD UREA NITROGEN 11 mg/dL (7-21); CALCIUM 8.2 mg/dL (8.4-10.5); GFR NON-AFRICAN AMERICAN > 60
[2018-12-02 08:06] LABS: ALT/SGPT < 6 U/L (7-56)
[2018-12-02] MEDS: Enoxaparin 30 mg Syringe SC SCH (09:27)
[2018-12-02] MEDS ORDERED: Potassium Chloride 20 mEq ER Tab PO ONE (09:29)
[2018-12-02 10:02] VITALS: BP 159/80; PULSE 75; RESP 17; TEMP 98.6
== END 2018-12-02 13:17 | disposition home or self-care (01) | DRG 337 ==
LOC: SDS 07:26 → 3RNO 14:38
PROVIDERS: ADMIT General Practice; ATTEND General Practice
PROC: 0WUF0JZ Supplement Abdominal Wall with Synthetic Substitute, Open Approach (ICD-10-PCS; principal; 2018-11-28 09:30)
PROC: 0DNW0ZZ Release Peritoneum, Open Approach (ICD-10-PCS; 2018-11-28 09:30)
DX: K43.5 Parastomal hernia without obstruction or gangrene (principal); K66.0 Peritoneal adhesions (postprocedural) (postinfection); K75.4 Autoimmune hepatitis; K74.60 Unspecified cirrhosis of liver; Z85.51 Personal history of malignant neoplasm of bladder; Z90.6 Acquired absence of other parts of urinary tract; Z88.5 Allergy status to narcotic agent; Z88.2 Allergy status to sulfonamides